=== PATIENT | male | born 1975 | race Caucasian/White ===

== ENCOUNTER 2025-02-22 10:43 | Inpatient (IN) | payer SELFPAY ==
[2025-02-22] VITALS (13 sets, daily range): BP systolic 117–178; BP diastolic 66–86; PULSE 56–100; RESP 16–18; TEMP 37.8–38.4; O2SAT 92–99; BMI 27.3
--- NOTE | 2025-02-22 11:24 | ED_ITS ---
Documented by User: DENISA Wheatley 02/22/25 17:20 HPI - Extremity Problem 2 General: Chief complaint: Extremity Problem,Nontraumatic Stated complaint: Dr bert Arora Leg Pain Time Seen by Provider: 02/22/25 11:02 Source: patient Mode of arrival: ambulatory Limitations: no limitations History of Present Illness: Patient is a 49-year-old male presents to ED today after he was recommended to come here by Dr. Doll regarding his right lower leg. Patient states a few days ago he began developing URI-like symptoms including cough, chest congestion, rhinorrhea/nasal congestion, as well as some diarrhea and low-grade fevers. He states his young child has been sick as well. He states he became concerned when he began developing redness and streaking to his right lower leg which is why he was seen at the clinic today. He is now not sure if his fevers are secondary to the likely viral URI or his leg. At the clinic, he was found to have cellulitis and lymphadenopathy involving his right leg and provider was concerned about sepsis thus prompting him to come to the emergency department. MD Complaint: extremity pain and extremity swelling Onset (ago): day(s) Pain Consistency: constant Location: right and lower extremity Radiation: none Relieving factors: nothing Exacerbating factors: weight bearing and walking Associated symptoms: Reports fever(s); Deny chest pain Related Data Home Medications ?Medication ?Instructions ?Recorded ?Confirmed [id number] 12.5 30 ml PO QID 02/22/25 02/22/25 mg-30 mg-1,000 mg/30 mL oral liquid ibuprofen 200 mg tablet (Advil) 800 mg PO Q6H PRN Feve r Or Pain 02/22/25 02/22/25 ibuprofen-diphenhydramine citrate 2 tab PO BEDTIME 11/1102/22/25 200 mg-38 mg tablet (Advil PM) Allergies Allergy/AdvReac Type Severity Reaction Status Date / Time No Known Allergies Allergy Verified 02/22/25 10:11 Review of Systems 2 Const: Reports: fever(s), chills and body aches Eyes: Denies: change in vision, blurry vision, photophobia, eye discomfort or eye discharge ENMT: Reports: nasal discharge and sinus pain; Denies: throat pain, odynophagia or ear or mastoid pain Card: Denies: chest pain, palpitations, irregular heart rhythm, edema, swelling of feet/ankles, lightheadedness, syncope, pre-syncope, dyspnea on exertion, orthopnea, leg pain with exertion or acrocyanosis Resp: Reports: non-productive cough and chest congestion; Denies: dyspnea GI: Denies: abdominal pain, nausea, vomiting or diarrhea : Denies: flank pain, dysuria or hematuria Musc: Reports: extremity pain and extremity swelling; Denies: neck pain, back pain, joint pain or joint swelling Skin/Breast: Reports: erythema Neuro: Denies: headache(s), numbness in extremities, weakness in extremities, sensory changes or dizziness PFSH ED 2 PFSH: Social History Smoking and tobacco/nicotine status: current every day tobacco/nicotine user Second hand smoke exposure: No Alcohol intake: former Substance/Drug Use: former Adopted: No Caregiver/support person: No Lives independently: No Household members: none Housing: House Marital status: Single Number of children: 5 Highest education level completed: High School Graduate service: No Physical Exam 2 Const: COMMON NORMALS: average body habitus, patient oriented x3, no limitations, healthy appearing, alert and well nourished GENERAL APPEARANCE: cooperative and ill appearing ORIENTATION/CONSCIOUSNESS: Yes awake, Yes oriented to person, Yes oriented to place and Yes oriented to time HENMT: COMMON NORMALS: normocephalic and atraumatic HEAD & SCALP: normal to inspection, normocephalic and atraumatic FACE & SINUS: normal facial exam Neck/C-Spine: COMMON NORMALS: no lymphadenopathy Resp: COMMON NORMALS: normal respiratory effort and clear to auscultation bilaterally AUSCULTATION: clear to auscultation bilaterally Cardio: COMMON NORMALS: regular rate and regular rhythm RATE: regular rate RHYTHM: regular rhythm GI: COMMON NORMALS: Normal to inspection, nondistended, normoactive bowel sounds present, Soft to palpation and non-tender PALPATION: Yes Soft to palpation : COMMON NORMALS: Yes no CVA tenderness BLADDER/KIDNEY EXAM: Yes no CVA tenderness Back/Pelvis: COMMON NORMALS: no CVA tenderness, thoracic and lumbar spine normal to inspection and no thoracic nor lumbar tenderness Extremity: COMMON NORMALS: full ROM, capillary refill normal and no calf tenderness GENERAL: Yes normal exam except as noted RIGHT LOWER EXTREMITY: Yes lower leg EXTREMITY IMAGE (FRONT): 1. large area of cellulitis that is outlined; warm to the touch; no obvious underlying fluid collection noted 2. lymphangitic streaking; inguinal lymp hadenopathy Neuro: COMMON NORMALS: patient oriented x3, moves all extremities, no focal motor deficits and no sensory deficits noted SENSORIUM/ORIENTATION: Yes alert, Yes oriented to person, Yes oriented to place and Yes oriented to time Skin: COMMON NORMALS: turgor normal NARRATIVE SKIN EXAM: see above GENERAL SKIN EXAM: turgor normal Course 2 Consultations: Consultation #1: Dr. Heaton-accepts hospitalization, recommending CT lower extremity Vital Signs: Vital signs: Vital Signs Temperature 100.2 F H 02/22/25 11:14 Pulse Rate 100 02/22/25 16:30 Respiratory Rate 18 02/22/25 11:14 Blood Pressure 149/82 02/22/25 16:30 Pulse Oximetry 97 02/22/25 16:30 Oxygen Delivery Me thod Room Air 02/22/25 11:14 MDM - Extremity (Nontraumatic) Medical Decision Making Patient is a nice 49-year-old male here mainly due to the concern of infection regarding his right lower extremity. He has had URI-like symptoms over the past several days and initially attributed to being around his sick child with similar symptoms. Patient's respiratory panel was unremarkable. CXR is normal. Patient has significant cellulitis involving his right lower extremity with lymphangitic spread proximally with a large amount of inguinal lymphadenopathy. Patient's vital signs are stable apart from low-grade temperature of 100.2. White count is 12.13 with a normal lactic. CRP mildly elevated at 35.3. He does not meet sepsis criteria. Blood cultures have been obtained and he was started on IV antibiotics. Patient will be admitted to Dr. Heaton-she did request CT imaging of his right lower extremity to rule out necrotizing fasciitis. I clinically do not have a concern for this. Medical Records I reviewed the patient's medical records. Lab Data I reviewed the patient's lab results. 02/22/25 11:25 02/22/25 11:25 Radiology Impressions Chest X-Ray 02/22/25 11:49 Impression: Hyperinflation and atherosclerosis. Lower Extremity CT 02/22/25 12:59 Impression: 1. Subcutaneous edema extending in the anterior aspect of the right leg from the knee to the ankle most consistent with severe cellulitis. 2. No evidence of abscess or tissue destruction. Femur CT 02/22/25 13:47 Impression: 1. Extensive subcutaneous fluid in the medial thigh extending the knee which probably represents cellulitis. 2. No evidence of abscess or muscle destruction is seen. 3. Fluid collection in right scrotum which may represent a simple cyst or more complex fluid collection.. Scrotum Ultrasound 02/22/25 15:38 IMPRESSION: Bilateral epididymal cysts measuring up to 1.9 cm on the right and 0.6 cm on the left. The right epididymal cyst is compatible with the cystic structure seen on CT from earlier the same day. Laboratory Results WBC 12.13 10^3/uL (3.29-11.43) H 02/22/25 11:25 RBC 5.25 10^6/uL (3.85-5.65) 02/22/25 11:25 Hgb 16.10 g/dL (11.27-16.99) 02/22/25 11:25 Hct 45.0 % (37-53) 02/22/25 11:25 MCV 85.7 fl (82-101) 02/22/25 11:25 MCH 30.7 pg (27-33) 02/22/25 11:25 MCHC 35.8 g/dL (30-55) 02/22/25 11:25 RDW 12.9 % (12.1-15.1) 02/22/25 11:25 Plt Count 166 10^3/cmm (157-399) 02/22/25 11:25 MPV 11.2 fL (7.4-10.4) H 02/22/25 11:25 Neut % (Auto) 78.0 % 02/22/25 11:25 Lymph % (Auto) 11.1 % 02/22/25 11:25 Daggett % (Auto) 10.1 % 02/22/25 11:25 Eos % (Auto) 0.1 % 02/22/25 11:25 Baso % (Auto) 0.2 % 02/22/25 11:25 Neut # (Auto) 9.46 10^3/uL (1.8-7.7) H 02/22/25 11:25 Lymph # (Auto) 1.4 10^3/uL (0.8-4.8) 02/22/25 11:25 Daggett # (Auto) 1.2 10^3/uL (0.2-0.9) H 02/22/25 11:25 Eos # (Auto) 0.0 10^3/uL (0.0-0.8) 02/22/25 11:25 Baso # (Auto) 0.0 10^3/uL (0.0-0.1) 02/22/25 11:25 Nucleated RBC % (auto) 0 % 02/22/25 11:25 Nucleated RBCs # 0.0 /100WBC 02/22/25 11:25 ESR 7 mm/hr (0-10) 02/22/25 11:25 Sodium 139 mmol/L (136-145) 02/22/25 11:25 Potassium 3.3 mmol/L (3.5-5.1) L 02/22/25 11:25 Chloride 99 mmol/L (98-107) 02/22/25 11:25 Carbon Dioxide 24 mmol/L (22-29) 02/22/25 11:25 Anion Gap 19.3 (5-19) H 02/22/25 11:25 BUN 12 mg/dL (6-20) 02/22/25 11:25 Creatinine 1.0 mg/dL (0.7-1.2) 02/22/25 11:25 GFR Calculation 79.4 mL/min (90-130) L 02/22/25 11:25 Glucose 108 mg/dL (65-115) 02/22/25 11:25 Estimat Average Glucose 105 02/22/25 11:25 Hemoglobin A1c 5.3 % (4.0-6.0) 02/22/25 11:25 Calculated Osmolality 288 mOsm/kg (285-295) 02/22/25 11:25 Lactic Acid 1.5 mmol/L (0.5-2.2) 02/22/25 11:25 Calcium 9.0 mg/dL (8.5-10.5) 02/22/25 11:25 Total Bilirubin 1.0 mg/dL (0.15-1.2) 02/22/25 11:25 AST 28 U/L (0-40) 02/22/25 11:25 ALT 53 U/L (0-41) H 02/22/25 11:25 Alkaline Phosphatase 66 U/L (40-130) 02/22/25 11:25 Creatine Kinase 76 U/L (39-308) 02/22/25 11:25 C-Reactive Protein 35.3 mg/L (0.0-4.9) H 02/22/25 11:25 Total Protein 8.8 g/dL (6.6-8.7) H 02/22/25 11:25 Albumin 4.4 g/dL (3.5-5.2) 02/22/25 11:25 Globulin 4.4 g/dL (1.3-4.6) 02/22/25 11:25 Triglycerides 75 mg/dL (0-150) 02/22/25 11:25 Cholesterol 130 mg/dL (0-200) 02/22/25 11:25 LDL Cholesterol, Calc 81 mg/dL (50-129) 02/22/25 11: HDL Cholesterol 34 mg/dL (60-100) L 02/22/25 11:25 LDL/HDL Ratio 2.38 RATIO (0.00-3.22) 02/22/25 11: Cholesterol/HDL Ratio 3.82 mg/dL (1.0-5.00) 02/22/25 11:25 Procalcitonin 0.07 ng/mL (0-0.5) 02/22/25 11:25 Urine Color Dark yellow (Yellow) A 02/22/25 13:22 Urine Appearance Cloudy (CLEAR) A 02/22/25 13:22 Urine pH 6.0 (5-7) 02/22/25 13:22 Ur Specific Bone Gap 1.031 (1.005-1.030) H 02/22/25 13:22 Urine Protein 3+ (Negative) A 02/22/25 13:22 Urine Glucose (UA) Negative (Normal) 02/22/25 13:22 Urine Ketones 2+ (Negative) H 02/22/25 13:22 Urine Blood 2+ (Negative) A 02/22/25 13:22 Urine Nitrate Negative (Negative) 02/22/25 13:22 Urine Bilirubin 1+ (Negative) H 02/22/25 13:22 Urine Urobilinogen 2.0 mg/dL (Negative) H 02/22/25 13:22 Ur Leukocyte Esterase Trace (Negative) A 02/22/25 13:22 Urine RBC 51-100 /hpf (0-2) H 02/22/25 13:22 Urine WBC 0-5 /hpf (0-5) 02/22/25 13:22 Ur Squamous Epith Cells 6-10 /hpf (0-5) 02/22/25 13:22 Amorphous Sediment Not Reportable 02/22/25 13:22 Urine Bacteria None seen /hpf (NONE) 02/22/25 13:22 Hyaline Casts 8.67 /lpf 02/22/25 13:22 Ur Random Microalbumin 49 ug/dL (0-20) H 02/22/25 13:22 U Random Total Protein 156 mg/dL 02/22/25 13:22 Urine Creatinine 389 mg/dL (39-259) H 02/22/25 13:22 Urine Creatinine 390 mg/dL (39-259) H 02/22/25 13:22 Microalb/Creat Ratio 126 mg/dL (0-20) H 02/22/25 13:22 Complement C3 171 mg/dL (90-180) 02/22/25 11:25 Complement C4 34 mg/dL (10-40) 02/22/25 11:25 Adenovirus (PCR) Not detected (NOT DETECT) 02/22/25 13:22 C. pneumoniae DNA (PCR) Not detected (NOT DETECT) 02/22/25 13:22 Coronavirus 229E (PCR) Not detected (NOT DETECT) 02/22/25 13:22 Human Metapneumovir PCR Not detected (NOT DETECT) 02/22/25 13:22 Influenza A (H1) PCR Not detected (NOT DETECT) 02/22/25 13:22 Influ A (H1/09) PCR Not detected (NOT DETECT) 02/22/25 13:22 Influenza A (H3) PCR Not detected (NOT DETECT) 02/22/25 13:22 Influenza Type A (PCR) Not detected (NOT DETECT) 02/22/25 13:22 Influenza Type B (PCR) Not detected (NOT DETECT) 02/22/25 13:22 M. pneumoniae (PCR) Not detected (NOT DETECT) 02/22/25 13:22 Parainfluenza 1 (PCR) Not detected (NOT DETECT) 02/22/25 13:22 Parainfluenza 2 (PCR) Not detected (NOT DETECT) 02/22/25 13:22 Parainfluenza 3 (PCR) Not detected (NOT DETECT) 02/22/25 13:22 Parainfluenza 4 (PCR) Not detected (NOT DETECT) 02/22/25 13:22 RSV Type A (PCR) Not detected (NOT DETECT) 02/22/25 13:22 RSV Type B (PCR) Not detected (NOT DETECT) 02/22/25 13:22 Entero/Rhino (PCR) Not detected (NOT DETECT) 02/22/25 13:22 SARS-CoV-2 (PCR) Not detected (NOT DETECT) 02/22/25 13:22 All radiology interpretation(s) finalized by discharge Discharge Plan Discharge Patient Disposition: Admitted As Inpatient Admit Provider: Kae Heaton Clinical Impression: Acute lymphangitis of right lower extremity, Cellulitis of right lower extremity Condition: Stable Coding Level of Care Code ED Charging Machine Operator for Chg Fwd Documented by User: Clairce Osorio MD 02/22/25 14:32 HPI - Extremity Problem 2 General: Chief complaint: Extremity Problem,Nontraumatic Stated complaint: Dr bert Arora Leg Pain Time Seen by Provider: 02/22/25 11:02 Related Data Home Medications ?Medication ?Instructions ?Recorded ?Confirmed [id number] 12.5 30 ml PO QID 02/22/25 02/22/25 mg-30 mg-1,000 mg/30 mL oral liquid ibuprofen 200 mg tablet (Advil) 800 mg PO Q6H PRN Feve r Or Pain 02/22/25 02/22/25 ibuprofen-diphenhydramine citrate 2 tab PO BEDTIME 11/1102/22/25 200 mg-38 mg tablet (Advil PM) Allergies Allergy/AdvReac Type Severity Reaction Status Date / Time No Known Allergies Allergy Verified 02/22/25 10:11 PFSH ED 2 PFSH: Social History Smoking and tobacco/nicotine status: current every day tobacco/nicotine user Second hand smoke exposure: No Alcohol intake: former Substance/Drug Use: former Adopted: No Caregiver/support person: No Lives independently: No Household members: none Housing: House Marital status: Single Number of children: 5 Highest education level completed: High School Graduate service: No Physical Exam 2 Extremity: EXTREMITY IMAGE (FRONT): 1. large area of cellulitis that is outlined; warm to the touch; no obvious underlying fluid collection noted 2. lymphangitic streaking; inguinal lymp hadenopathy Course 2 Vital Signs: Vital signs: Vital Signs Temperature 100.2 F H 02/22/25 11:14 Pulse Rate 100 02/22/25 16:30 Respiratory Rate 18 02/22/25 11:14 Blood Pressure 149/82 02/22/25 16:30 Pulse Oximetry 97 02/22/25 16:30 Oxygen Delivery Me thod Room Air 02/22/25 11:14 MDM - Extremity (Nontraumatic) Lab Data 02/22/25 11:25 02/22/25 11:25 Radiology Impressions Chest X-Ray 02/22/25 11:49 Impression: Hyperinflation and atherosclerosis. Lower Extremity CT 02/22/25 12:59 Impression: 1. Subcutaneous edema extending in the anterior aspect of the right leg from the knee to the ankle most consistent with severe cellulitis. 2. No evidence of abscess or tissue destruction. Femur CT 02/22/25 13:47 Impression: 1. Extensive subcutaneous fluid in the medial thigh extending the knee which probably represents cellulitis. 2. No evidence of abscess or muscle destruction is seen. 3. Fluid collection in right scrotum which may represent a simple cyst or more complex fluid collection.. Scrotum Ultrasound 02/22/25 15:38 IMPRESSION: Bilateral epididymal cysts measuring up to 1.9 cm on the right and 0.6 cm on the left. The right epididymal cyst is compatible with the cystic structure seen on CT from earlier the same day. Laboratory Results WBC 12.13 10^3/uL (3.29-11.43) H 02/22/25 11:25 RBC 5.25 10^6/uL (3.85-5.65) 02/22/25 11:25 Hgb 16.10 g/dL (11.27-16.99) 02/22/25 11:25 Hct 45.0 % (37-53) 02/22/25 11:25 MCV 85.7 fl (82-101) 02/22/25 11:25 MCH 30.7 pg (27-33) 02/22/25 11:25 MCHC 35.8 g/dL (30-55) 02/22/25 11:25 RDW 12.9 % (12.1-15.1) 02/22/25 11:25 Plt Count 166 10^3/cmm (157-399) 02/22/25 11:25 MPV 11.2 fL (7.4-10.4) H 02/22/25 11:25 Neut % (Auto) 78.0 % 02/22/25 11:25 Lymph % (Auto) 11.1 % 02/22/25 11:25 Daggett % (Auto) 10.1 % 02/22/25 11:25 Eos % (Auto) 0.1 % 02/22/25 11:25 Baso % (Auto) 0.2 % 02/22/25 11:25 Neut # (Auto) 9.46 10^3/uL (1.8-7.7) H 02/22/25 11:25 Lymph # (Auto) 1.4 10^3/uL (0.8-4.8) 02/22/25 11:25 Daggett # (Auto) 1.2 10^3/uL (0.2-0.9) H 02/22/25 11:25 Eos # (Auto) 0.0 10^3/uL (0.0-0.8) 02/22/25 11:25 Baso # (Auto) 0.0 10^3/uL (0.0-0.1) 02/22/25 11:25 Nucleated RBC % (auto) 0 % 02/22/25 11:25 Nucleated RBCs # 0.0 /100WBC 02/22/25 11:25 ESR 7 mm/hr (0-10) 02/22/25 11:25 Sodium 139 mmol/L (136-145) 02/22/25 11:25 Potassium 3.3 mmol/L (3.5-5.1) L 02/22/25 11:25 Chloride 99 mmol/L (98-107) 02/22/25 11:25 Carbon Dioxide 24 mmol/L (22-29) 02/22/25 11:25 Anion Gap 19.3 (5-19) H 02/22/25 11:25 BUN 12 mg/dL (6-20) 02/22/25 11:25 Creatinine 1.0 mg/dL (0.7-1.2) 02/22/25 11:25 GFR Calculation 79.4 mL/min (90-130) L 02/22/25 11:25 Glucose 108 mg/dL (65-115) 02/22/25 11:25 Estimat Average Glucose 105 02/22/25 11:25 Hemoglobin A1c 5.3 % (4.0-6.0) 02/22/25 11:25 Calculated Osmolality 288 mOsm/kg (285-295) 02/22/25 11:25 Lactic Acid 1.5 mmol/L (0.5-2.2) 02/22/25 11:25 Calcium 9.0 mg/dL (8.5-10.5) 02/22/25 11:25 Total Bilirubin 1.0 mg/dL (0.15-1.2) 02/22/25 11:25 AST 28 U/L (0-40) 02/22/25 11:25 ALT 53 U/L (0-41) H 02/22/25 11:25 Alkaline Phosphatase 66 U/L (40-130) 02/22/25 11:25 Creatine Kinase 76 U/L (39-308) 02/22/25 11:25 C-Reactive Protein 35.3 mg/L (0.0-4.9) H 02/22/25 11:25 Total Protein 8.8 g/dL (6.6-8.7) H 02/22/25 11:25 Albumin 4.4 g/dL (3.5-5.2) 02/22/25 11:25 Globulin 4.4 g/dL (1.3-4.6) 02/22/25 11:25 Triglycerides 75 mg/dL (0-150) 02/22/25 11:25 Cholesterol 130 mg/dL (0-200) 02/22/25 11:25 LDL Cholesterol, Calc 81 mg/dL (50-129) 02/22/25 11:25 HDL Cholesterol 34 mg/dL (60-100) L 02/22/25 11:25 LDL/HDL Ratio 2.38 RATIO (0.00-3.22) 02/22/25 11: Cholesterol/HDL Ratio 3.82 mg/dL (1.0-5.00) 02/22/25 11:25 Procalcitonin 0.07 ng/mL (0-0.5) 02/22/25 11:25 Urine Color Dark yellow (Yellow) A 02/22/25 13:22 Urine Appearance Cloudy (CLEAR) A 02/22/25 13:22 Urine pH 6.0 (5-7) 02/22/25 13:22 Ur Specific Bone Gap 1.031 (1.005-1.030) H 02/22/25 13:22 Urine Protein 3+ (Negative) A 02/22/25 13:22 Urine Glucose (UA) Negative (Normal) 02/22/25 13:22 Urine Ketones 2+ (Negative) H 02/22/25 13:22 Urine Blood 2+ (Negative) A 02/22/25 13:22 Urine Nitrate Negative (Negative) 02/22/25 13:22 Urine Bilirubin 1+ (Negative) H 02/22/25 13:22 Urine Urobilinogen 2.0 mg/dL (Negative) H 02/22/25 13:22 Ur Leukocyte Esterase Trace (Negative) A 02/22/25 13:22 Urine RBC 51-100 /hpf (0-2) H 02/22/25 13:22 Urine WBC 0-5 /hpf (0-5) 02/22/25 13:22 Ur Squamous Epith Cells 6-10 /hpf (0-5) 02/22/25 13:22 Amorphous Sediment Not Reportable 02/22/25 13:22 Urine Bacteria None seen /hpf (NONE) 02/22/25 13:22 Hyaline Casts 8.67 /lpf 02/22/25 13:22 Ur Random Microalbumin 49 ug/dL (0-20) H 02/22/25 13:22 U Random Total Protein 156 mg/dL 02/22/25 13:22 Urine Creatinine 389 mg/dL (39-259) H 02/22/25 13:22 Urine Creatinine 390 mg/dL (39-259) H 02/22/25 13:22 Microalb/Creat Ratio 126 mg/dL (0-20) H 02/22/25 13:22 Complement C3 171 mg/dL (90-180) 02/22/25 11:25 Complement C4 34 mg/dL (10-40) 02/22/25 11:25 Adenovirus (PCR) Not detected (NOT DETECT) 02/22/25 13:22 C. pneumoniae DNA (PCR) Not detected (NOT DETECT) 02/22/25 13:22 Coronavirus 229E (PCR) Not detected (NOT DETECT) 02/22/25 13:22 Human Metapneumovir PCR Not detected (NOT DETECT) 02/22/25 13:22 Influenza A (H1) PCR Not detected (NOT DETECT) 02/22/25 13:22 Influ A (H1/09) PCR Not detected (NOT DETECT) 02/22/25 13:22 Influenza A (H3) PCR Not detected (NOT DETECT) 02/22/25 13:22 Influenza Type A (PCR) Not detected (NOT DETECT) 02/22/25 13:22 Influenza Type B (PCR) Not detected (NOT DETECT) 02/22/25 13:22 M. pneumoniae (PCR) Not detected (NOT DETECT) 02/22/25 13:22 Parainfluenza 1 (PCR) Not detected (NOT DETECT) 02/22/25 13:22 Parainfluenza 2 (PCR) Not detected (NOT DETECT) 02/22/25 13:22 Parainfluenza 3 (PCR) Not detected (NOT DETECT) 02/22/25 13:22 Parainfluenza 4 (PCR) Not detected (NOT DETECT) 02/22/25 13:22 RSV Type A (PCR) Not detected (NOT DETECT) 02/22/25 13:22 RSV Type B (PCR) Not detected (NOT DETECT) 02/22/25 13:22 Entero/Rhino (PCR) Not detected (NOT DETECT) 02/22/25 13:22 SARS-CoV-2 (PCR) Not detected (NOT DETECT) 02/22/25 13:22 Discharge Plan Discharge Patient Disposition: Admitted As Inpatient Admit Provider: Kae Heaton Clinical Impression: Acute lymphangitis of right lower extremity, Cellulitis of right lower extremity Condition: Stable Coding Level of Care Code ED Charging Machine Operator for Jorge Luis Allen
[2025-02-22 11:34] LABS: Hematocrit 45.0 % (37-53); Hemoglobin 16.10 g/dL (11.27-16.99); Mean Corpuscular HGB Conc 35.8 g/dL (30-55); Mean Corpuscular Hemoglobin 30.7 pg (27-33); Mean Corpuscular Volume 85.7 fl (82-101); Nucleated Red Blood Cells % 0 %; Platelet Count 166 10^3/cmm (157-399); Red Blood Count 5.25 10^6/uL (3.85-5.65); White Blood Count 12.13 10^3/uL (3.29-11.43)
--- NOTE | 2025-02-22 11:49 | XR_ITS ---
WS: [id number] Portable AP upright chest, 02/22/2025 Clinical Data: cough/fevers Comparison: None. Findings: No nodules, masses or effusions are seen. The heart is normal. The pulmonary vascularity is not increased. No pneumonia or pneumothorax is seen. The diaphragms are flattened. The aortic arch shows mild calcification. XR/XR chest 1V portable [id number] Impression: Hyperinflation and atherosclerosis.
[2025-02-22 11:55] LABS: Lactic Sepsis W/Reflex 1.5 mmol/L (0.5-2.2)
[2025-02-22 11:56] LABS: Alanine Aminotransferase 53 U/L (0-41); Albumin Level 4.4 g/dL (3.5-5.2); Alkaline Phosphatase 66 U/L (40-130); Anion Gap 19.3 (5-19); Aspartate Amino Transferase 28 U/L (0-40); Blood Urea Nitrogen 12 mg/dL (6-20); Calcium 9.0 mg/dL (8.5-10.5); Carbon Dioxide 24 mmol/L (22-29); Chloride 99 mmol/L (98-107); Globulin 4.4 g/dL (1.3-4.6); Glucose 108 mg/dL (65-115); Osmolality Calculated 288 mOsm/kg (285-295); Potassium 3.3 mmol/L (3.5-5.1); Sodium 139 mmol/L (136-145); Total Protein 8.8 g/dL (6.6-8.7)
--- NOTE | 2025-02-22 12:01 | USCV_ITS ---
Jani Gonzales Age: 49 Gender: M : 1975 Exam Date: 02/22/2025 12:19 Ordering Phys: Eun Thurman Technologist: Exam Location: [facility] [place]_ Indication: rt leg pain and swelling PROCEDURES: Venous duplex imaging was performed in only the right lower extremity. The following venous structures were evaluated: common femoral vein, profunda vein, proximal portion of the greater saphenous vein, superficial femoral vein, and the popliteal vein. In addition, the posterior tibial and peroneal trunk were evaluated. FINDINGS: Normal 2-D Doppler and augmentation and compressibility throughout the lower extremity venous structures. Additional imaging through the proximal calf veins also reveals no thrombus. Limited evaluation of the greater saphenous vein is patent with no thrombus. Large Bakers cyst in right popliteal fossa. CONCLUSIONS No DVT right lower extremity. Right popliteal fossa Goel's cyst. Dr. Radha Ferrer DO (Electronically Signed) Final Date: 22 February 2025 12:34 S
--- NOTE | 2025-02-22 12:59 | CT_ITS ---
WS: [email or web address] CT scan of the right leg, 02/22/2025 Clinical Data: infection; r/o abscess/necrotizing fasciitis DLP: 520.08 mGy centimeters Comparison: None. Findings: There is subcutaneous edema extending from the knee to the ankle. The edema is mostly in the anterior leg. No fluid-fluid levels or air-fluid levels are seen. There is no evidence of an abscess. There is no bone destruction. The muscles appear to be normal with no disruption. There is a fluid collection posterior to the knee which probably represents a Goel's cyst. CT/CT lower leg RT w con [id number] Impression: 1. Subcutaneous edema extending in the anterior aspect of the right leg from th e knee to the ankle most consistent with severe cellulitis. 2. No evidence of abscess or tissue destruction.
--- NOTE | 2025-02-22 13:47 | CT_ITS ---
WS: [id number] CT scan of the right thigh and femur, 02/22/2025 Clinical Data: infection; r/o abscess/nec fasc Comparison: None. Findings: There is extensive subcutaneous fluid on the medial thigh extending from the right inguinal region to the knee. There are no air-fluid or fluid fluid levels. No evidence of abscess is seen. The muscle appears to be intact. There is no bone destruction or erosion. The arterial and venous system appears to be normal. There is a lymph node in the right inguinal region which shows perinodal edema. The right scrotum shows a fluid collection which could represent a simple or more complex cyst fluid collection.. No fluid-fluid level is seen within this fluid collection. There is a 3.5 cm fluid collection posterior to the knee which probably represents a Goel's cyst. CT/CT femur RT w con [id number] Impression: 1. Extensive subcutaneous fluid in the medial thigh extending the knee which pr obably represents cellulitis. 2. No evidence of abscess or muscle destruction is seen. 3. Fluid collection in right scrotum which may represent a simple cyst or more complex fluid collection..
[2025-02-22 14:35] LABS: Glucose Urine UA Negative (Normal); Nitrate Urine Negative (Negative)
[2025-02-22 14:40] LABS: Add Urine Microscopic? YES
[2025-02-22 14:47] LABS: Specific Gravity, Urine 1.031 (1.005-1.030)
[2025-02-22 14:48] LABS: UA Slide Review UA Slide Review Perf
--- NOTE | 2025-02-22 14:57 | P.HP_ITS ---
Providers/Chief Complaint 2 Primary Care Provider: ABRAN Sanchez Chief Complaint: Dr bert Arora Leg Pain Fever History of Present Illness Jani Gonzales is a 49 year old male With no significant past medical history other than psychiatric care as listed per patient's primary care notes presented to the hospital today for complaint of right leg cellulitis. He has been developing upper respiratory like symptoms including cough congestion rhinorrhea nasal congestion with some diarrhea and low-grade fevers. He states his kids at home have been sick. He started developing redness and streaking to his right lower leg. He went to his primary care doctor today where the leg was marked with skin marker and he was sent to the ER for further evaluation. He does have lymphadenopathy involving his right leg. He does have red splotches on right groin area as well. This feels slightly nauseous however denies vomiting at this time and active diarrhea. States he has a fever however has not checked his temperature at home. In the ER today was 100.2. He states the redness started off on his right de la cruz and now he started spreading to his knee and tracking up all the way to the groin. It appears to be in lymphatic distribution. Medications/Allergies Allergies Allergy/AdvReac Type Severity Reaction Status Date / Time No Known Allergies Allergy Verified 02/22/25 10:11 PFSH Acute 2 PFSH: Social History Smoking and tobacco/nicotine status: current every day tobacco/nicotine user Second hand smoke exposure: No Alcohol intake: former Substance/Drug Use: former Adopted: No Caregiver/support person: No Lives independently: No Household members: none Housing: House Marital status: Single Number of children: 5 Highest education level completed: High School Graduate service: No Vitals/I&O/Wt Last Vital Signs Temp 100.2 F H 02/22/25 11:14 Pulse 86 02/22/25 11:14 Resp 18 02/22/25 11:14 BP 153/86 02/22/25 11:14 Pulse Ox 99 02/22/25 11:14 O2 Del Method Room Air 02/22/25 11:14 Physical Exam 2 Narrative: General: Alert oriented x3, patient seen sitting up in bed. Patient has facial flushing present. He states he is feeling really hot. HEENT: Normocephalic, atraumatic, EOMI, breathing room air Cardio: Tachycardic, normal S1-S2, Respiratory: Clear to auscultation bilaterally no wheezes no rhonchi GI: Abdomen soft, nontender, bowel sounds + Extremities: Pulses 2+, redness extending from right de la cruz all the way up to thigh and groin area. Area is tender and warm to touch. Has been marked with skin marker. Patient states that this has been spreading within the last day. Data 02/22/25 11:25 02/22/25 11:25 Micro: Microbiology 02/22/25 11:27 Blood Culture - Preliminary Blood SPECIMEN COLLECTED 02/22/25 11: Blood Culture - Preliminary Blood SPECIMEN COLLECTED A&P Assessment and plan 1. Acute lymphangitis of right lower extremity: 2. Cellulitis of right lower extremity: 3. Hypokalemia: 4. Fever: 5. Dehydration: Plan: #Right leg cellulitis #SIRS criteria met secondary to cellulitis?criteria met by fever, tachycardia, #Hypokalemia #Dehydration #Fever secondary to above - Isiah the redness area with marker. ? Will place on vancomycin Zosyn and clindamycin for toxin suppression ? Appears to be possible lymphangitis. ? Check CT leg to rule out deeper infection. ? Patient denies any blunt trauma skin abrasions. No crepitus present in the skin. Will closely watch for possibility of necrotizing fasciitis?. ? Consult orthopedic surgery for evaluation. -Elevated CRP 35 ? Check sed rate, creatinine kinase ? Check respiratory panel 2. - Check blood cultures ? Patient appears to be dehydrated. Normal saline bolus 1 L to be given ? Placed on normal saline 125 cc/h ? Zofran for nausea ? Tylenol 650 every 6 hours as needed for pain ? Venous Dopplers negative for DVT. Full code DVT prophylaxis: Heparin SQ twice daily PDMP PDMP Reviewed: Not Reviewed Attestations 2 Medical Necessity Statement*: > 2 midnight stay for management Diagnoses Acute lymphangitis of right lower extremity L03.125 Cellulitis of right lower extremity L03.115 Hypokalemia E87.6 Fever R50.9 Dehydration E86.0
[2025-02-22] MEDS: iohexol 350 mg/mL 500 mL Btl (per mL) IV ×2 (15:02)
--- NOTE | 2025-02-22 15:38 | P.CONIM_ITS ---
Providers/Reason For Consult 2 Consulting Physician/Specialty*: Collin Morales MD/telenephrology Reason for Consult*: Abnormal urinalysis. Requesting Physician: Dr. Kae BRANDON Attending Physician: Dr Kae Brandon Primary Care Provider: ABRAN Sanchez History of Present Illness History of Present Illness Jani Gonzales is a 49 year old male here with right lower extremity cellulitis. Patient states he has been having leg pain for the last couple days. He also has URI symptoms. He has had fevers went to his PMD who sent him to emergency room. Where the patient was admitted to the hospital urinalysis has 2+ ketones 3+ proteins 2+ blood 1+ bili Rodrigue, 51-100 red cells 0-5 white cells and hyaline cast. Review of Systems 2 Narrative: Weak nausea, URI symptoms, diarrhea, leg pains, chronic ibuprofen use, headaches, leg pains, shortness of breath no visual changes no chest pain no abdominal pain poor appetite 1 episode of diarrhea Medications/Allergies Home Medications ?Medication ?Instructions ?Recorded ?Confirmed ?Last Taken ?Type ssxjkjypwh-PA-pvqmyteamcrty 12.5 30 ml PO QID 02/22/25 02/22/25 02/21/25 22:00 History mg-30 mg-1,000 mg/30 mL oral liquid ibuprofen 200 mg tablet (Advil) 800 mg PO Q6H PRN Feve r Or Pain 02/22/25 02/22/25 02/21/25 History ibuprofen-diphenhydramine citrate 2 tab PO BEDTIME 11/1102/22/25 02/21/25 20:00 History 200 mg-38 mg tablet (Advil PM) Allergies Allergy/AdvReac Type Severity Reaction Status Date / Time No Known Allergies Allergy Verified 02/22/25 10:11 PFSH Acute 2 PFSH: Social History Smoking and tobacco/nicotine status: current every day tobacco/nicotine user Second hand smoke exposure: No Alcohol intake: former Substance/Drug Use: former Adopted: No Caregiver/support person: No Lives independently: No Household members: none Housing: House Marital status: Single Number of children: 5 Highest education level completed: High School Graduate service: No Vitals/I&O/Wt Last Vital Signs Temp 100.2 F H 02/22/25 11:14 Pulse 86 02/22/25 11:14 Resp 18 02/22/25 11:14 BP 153/86 02/22/25 11:14 Pulse Ox 99 02/22/25 11:14 O2 Del Method Room Air 02/22/25 11:14 Physical Exam 2 Narrative: Patient lying in bed vital signs noted. No apparent respiratory distress low- grade fevers. HEENT normocephalic atraumatic. Neck is supple Lungs clear to auscultation. Heart regular no rubs or gallops. Abdomen is soft positive bowel sounds. Extremities right lower extremity erythematous changes streaking up his leg. Significant tenderness. Trace edema bilaterally. Neuro awake alert oriented x 3 Data 02/22/25 11:25 02/22/25 11:25 Micro: Microbiology 02/22/25 11:27 Blood Culture - Preliminary Blood SPECIMEN COLLECTED 02/22/25 11:25 Blood Culture - Preliminary Blood SPECIMEN COLLECTED A&P Assessment and plan 1. Proteinuria: 49-year-old man with cellulitis chronic ibuprofen use. 1. Mild increased anion gap: Normal lactate. Glucose 108 this is not DKA. Monitor for starvation. 2. Urinalysis cloudy specific gravity 1031 urine protein 3+ urine ketones 2+ urine blood 2+ RBCs 51-100, white cells 0-5, squamous epithelial cells 6-10 hyaline casts present. I am concerned if patient has an infection related GN. Will send complements. Will send random urine protein and creatinine and urine albumin creatinine. Will send complements. Will send hepatitis serologies will send SAMANTHA [id number] DNA. We did advise patient to stop using NSAIDs which may be difficult for him. Will check a renal ultrasound. Given history of smoking and hematuria would also recommend urology evaluation which can be done as an outpatient. 3. Hypokalemia, will check magnesium and phosphorus look for starvation. Patient seen and examined with the aid of a nurse using A/V equipment. Patient consented to telehealth. Plan: Antibiotics as per primary. Send basic serologies for hematuria and proteinuria and ketones in urine. Evaluate for starvation. PDMP PDMP Reviewed: Not Reviewed Consult Attestations 2 Medical Necessity Statement: Leg cellulitis, abnormal urinalysis. Stop NSAIDs. Time Spent in Patient Care: Greater than 35 minutes (>than 50% of time spent in counselling and/or direct pt care on unit) . Coding Level of Care Code Acute Code for Chg Fwd Diagnoses Proteinuria R80.9
--- NOTE | 2025-02-22 15:38 | USR_ITS ---
PROCEDURE INFORMATION: Exam: US Scrotum Exam date and time: 02/22/2025 4:40 PM Age: 49 years old Clinical indication: Scrotum pain; Additional info: Right scrotum cystic collection TECHNIQUE: Imaging protocol: Real-time ultrasound of the scrotum and contents with color Doppler and image documentation. COMPARISON: CT femur RT w con [id number] 02/22/2025 2:49 PM FINDINGS: Right testicle: Normal. No mass. Normal color Doppler and arterial waveforms. No torsion. Right testicle measures 3.1 x 2.7 x 5.8 cm (25.6 mL). Left testicle: Normal. No mass. Normal color Doppler and arterial waveforms. No torsion. Left testicle measures 2.7 x 2.9 x 5.1 cm (20.8 mL). Epididymides: Right epididymal cysts measuring 1.8 x 1.9 x 1.9 cm. Left epididymal cysts measuring up to 0.6 cm. Scrotum/soft tissues: Normal. No hydroceles. US/US scrotum [id number] IMPRESSION: Bilateral epididymal cysts measuring up to 1.9 cm on the right and 0.6 cm on the left. The right epididymal cyst is compatible with the cystic structure seen on CT from earlier the same day.
[2025-02-22 15:39] LABS: Coronavirus 229E,HKU1,NL63,OC4 Not Detected (NOT DETECT); Parainfluenza Virus Type 1 Not Detected (NOT DETECT); Parainfluenza Virus Type 2 Not Detected (NOT DETECT); Parainfluenza Virus Type 3 Not Detected (NOT DETECT); Parainfluenza Virus Type 4 Not Detected (NOT DETECT); SARS-COV-2 Not Detected (NOT DETECT)
[2025-02-22 15:39] LABS: Estmated Average Glucose 105; Hemoglobin A1C 5.3 % (4.0-6.0)
[2025-02-22 15:40] LABS: Procalcitonin 0.07 ng/mL (0-0.5)
[2025-02-22] MEDS: piperacillin-tazobactam 3.375 GM in sodium chloride 0.9% (plus) 50 ML IV (15:48)
[2025-02-22] MEDS: heparin 5,000 unit/mL INJ 1 mL 5000 UNIT SUBCUT (15:52)
[2025-02-22 16:00] LABS: Cholesterol 130 mg/dL (0-200); HDL Cholesterol 34 mg/dL (60-100); Triglycerides 75 mg/dL (0-150)
[2025-02-22 16:40] LABS: Creatinine Urine, Random 390 mg/dL (39-259)
[2025-02-22 16:49] LABS: Microalbum Creatinine Ratio Ur 126 mg/dL (0-20)
--- NOTE | 2025-02-22 17:01 | PM.CONSULT ---
Providers/Reason For Consult Consulting Physician/Specialty*: Femi Rashid DO/orthopedic surgery Reason for Consult*: Consultation for right lower extremity cellulitis rule out necrotizing fasciitis Requesting Physician: Dr. Heaton Attending Physician: Kae Heaton MD Primary Care Provider: Harjit Meneses, S[employer]IOR [employer] PRO[employer] MA[employer]GER-[employer] History of Present Illness History of Present Illness Jani Gonzales is a 49 year old male presents to the emergency department complaining of right lower leg redness. Patient's had upper respiratory symptoms as well as low-grade fevers states he is had kids have been sick at home. Patient states on my history with the patient initially started off he states on Tuesday with pain up in the groin where he noted some red streaking down his thigh, he states he then noticed some redness on his lower leg and he has had some streaking through the right lower leg and at this point in time given his symptoms presented to the emergency department at this point in time emergency department has worked up patient patient's WBC count is 12 CRP 35 ESR 7. Internal medicine has seen evaluated patient due to patient's right lower extremity streaking cellulitis orthopedics was consulted for evaluation to rule out necrotizing fasciitis. Patient states he has had's low-grade fevers states he has felt nauseous but denies any vomiting. Patient's already received fluid and antibiotics he states he already feels better and feels some of his redness on his leg appears to be improving Review of Systems General: Reports: 10 or more systems reviewed and unremarkable except in HPI and below Medications/Allergies Home Medications ?Medication ?Instructions ?Recorded ?Confirmed ?Last Taken ?Type wbiayolkex-HC-bgqtprgtshasr 12.5 30 ml PO QID 02/22/25 02/22/25 02/21/25 22:00 History mg-30 mg-1,000 mg/30 mL oral liquid ibuprofen 200 mg tablet (Advil) 800 mg PO Q6H PRN Fever Or Pain 02/22/25 02/22/25 02/21/25 History ibuprofen-diphenhydramine citrate 2 tab PO BEDTIME 02/22/25 02/22/25 02/21/25 20:00 History 200 mg-38 mg tablet (Advil PM) Allergies Allergy/AdvReac Type Severity Reaction Status Date / Time No Known Allergies Allergy Verified 02/22/25 10:11 Current Medications Generic Name Dose Route Start Last Admin Trade Name Freq PRN Reason Stop Dose Admin Heparin Sodium (Porcine) 5,000 unit 02/22/25 15:00 02/22/25 15:52 Heparin 5,000 Unit/Ml Inj 1 Ml SUBCUT 5,000 unit Q12H CHRIS Administration Sodium Chloride 1,000 mls @ 125 mls/hr 02/22/25 15:00 02/22/25 15:44 Sodium Chloride 0.9% IV 125 mls/hr .Q8H CHRIS Administration PFSH Acute PFSH: Social History Smoking and tobacco/nicotine status: current every day tobacco/nicotine user Second hand smoke exposure: No Alcohol intake: former Substance/Drug Use: former Adopted: No Caregiver/support person: No Lives independently: No Household members: none Housing: House Marital status: Single Number of children: 5 Highest education level completed: High School Graduate service: No Vitals/I&O/Wt Last Vital Signs Temp 100.2 F H 02/22/25 11:14 Pulse 89 02/22/25 11:48 Resp 18 02/22/25 11:14 BP 153/86 02/22/25 11:14 Pulse Ox 98 02/22/25 11:48 O2 Del Method Room Air 02/22/25 11:14 Physical Exam Narrative: Orthopedic examination right lower extremity: Examination of the right lower extremity there is no open wounds or sores throughout the right lower extremity. Patient on examination he does have enlarged inguinal lymph nodes with mild tenderness to palpation in this area. There have been concern on imaging of some swelling in his scrotum this was inspected I do not see any acute signs of infection spreading from this area there is no erythema or redness, patient does have multiple areas of red streaking down the thigh and a lymphatic distribution as well as being very patchy/streaky another area of lymphangitis appreciated at the pretibial region. Patient has no appreciable swelling at the knee is able to actively move the knee in the right lower extremity sensations intact light touch distally right lower extremity warm well-perfused compartments are soft compressible examination of the lower leg as well as thigh there is no subcutaneous emphysema no subcutaneous bullae appreciated Data 02/22/25 11:25 02/22/25 11:25 Other Labs: Lactic acid 1.5, CRP 35.3 ESR 7 Test Low Normal [facility] Urine Color Dark Yellow A Yellow Appearance Cloudy A CLEAR pH 6.0 5-7 Spec. [place] 1.031 H 1.005-1.030 UA Prot 3+ A Negative Ur Glu UA Negative Normal Ur Ketone 2+ H Negative Blood Urine 2+ A Negative Ur Nitrite Negative Negative Ur Bilirubin 1+ H Negative Urobilinogen 2.0 H Negative mg/dL Ur Santosh Esterase Trace A Negative Reflex Ur Micro Ur RBC 51-100 H 0-2 /hpf Ur WBC 0-5 0-5 /hpf Ur Squam Epi 6-10 0-5 /hpf Ur Bact None Seen NONE /hpf Ur Hyaline [employer] 8.67 /lpf Micro: Microbiology 02/22/25 11:27 Blood Culture - Preliminary Blood SPECIMEN COLLECTED 02/22/25 11:25 Blood Culture - Preliminary Blood SPECIMEN COLLECTED Other CT: Radiologist's impression: Ordering Provider/Ordering MD: Eun Thurman Date of Service: 02/22/25 Procedure(s): CT lower leg RT w con [id number] Accession Number(s): [id number] Report Number: [id number] WS: [email or web address] CT scan of the right leg, 02/22/2025 Clinical Data: infection; r/o abscess/necrotizing fasciitis DLP: 520.08 mGy centimeters Comparison: None. Findings: There is subcutaneous edema extending from the knee to the ankle. The edema is mostly in the anterior leg. No fluid-fluid levels or air-fluid levels are seen. There is no evidence of an abscess. There is no bone destruction. The muscles appear to be normal with no disruption. There is a fluid collection posterior to the knee which probably represents a Goel's cyst. CT/CT lower leg RT w con [id number] Impression: 1. Subcutaneous edema extending in the anterior aspect of the right leg from the knee to the ankle most consistent with severe cellulitis. 2. No evidence of abscess or tissue destruction. Ordering Provider/Ordering MD: Eun Thurman Date of Service: 02/22/25 Procedure(s): CT femur RT w con [id number] Accession Number(s): [id number] Report Number: [id number] ADDENDUM WS: [email or web address] DLP: 695.13 mGy centimeters Addendum Dictated By: Debra Brower MD Addendum Signed By: Debra Brower MD Signed Date/Time: 02/22/25 0862 Addendum Cosigned By: WS: [email or web address] CT scan of the right thigh and femur, 02/22/2025 Clinical Data: infection; r/o abscess/nec fasc Comparison: None. Findings: There is extensive subcutaneous fluid on the medial thigh extending from the right inguinal region to the knee. There are no air-fluid or fluid fluid levels. No evidence of abscess is seen. The muscle appears to be intact. There is no bone destruction or erosion. The arterial and venous system appears to be normal. There is a lymph node in the right inguinal region which shows perinodal edema. The right scrotum shows a fluid collection which could represent a simple or more complex cyst fluid collection.. No fluid-fluid level is seen within this fluid collection. There is a 3.5 cm fluid collection posterior to the knee which probably represents a Goel's cyst. CT/CT femur RT w con [id number] Impression: 1. Extensive subcutaneous fluid in the medial thigh extending the knee which probably represents cellulitis. 2. No evidence of abscess or muscle destruction is seen. 3. Fluid collection in right scrotum which may represent a simple cyst or more complex fluid collection.. A&P Assessment and plan 1. Acute lymphangitis of right lower extremity: 2. Cellulitis of right lower extremity: Plan: Labs reviewed CT scan reviewed for right lower EXTR CT scan reviewed for right femur On IV antibiotics Internal medicine on board as primary admitting patient Nephrology on board Orthopedics consulted At this point in time patient clinically has findings consistent with lymphangitis as well as cellulitis to the right lower extremity. CT scan does not demonstrate any soft tissue destruction or any acute active infection or fluid collection to be addressed from a surgical standpoint. From a clinical standpoint there is no signs or evidence of necrotizing fasciitis at this time. I did calculate his LRINEC score which is at a 0 based off of his labs on admission. At this point in time no recommendation for any acute orthopedic surgical intervention at this time orthopedic surgery team will sign off patient and follow peripherally if there is any questions pertaining patient's care or any acute change in patient's care feel free to contact orthopedics on-call. All questions were answered at this time. Patient understands agrees with current plan. All questions answered at this time. PDMP PDMP Reviewed: Not Reviewed Coding Level of Care Code Acute Code for Chg Fwd Diagnoses Acute lymphangitis of right lower extremity L03.125 Cellulitis of right lower extremity L03.115 Time Spent (min) 45
[2025-02-22 17:19] LABS: Hepatitis B Surface Antigen Non-Reactive (Nonreactive)
--- NOTE | 2025-02-22 18:17 | PHA.VACGOAL ---
Vancomycin Goal - Goal Vancomycin Goal:: 10-15 mg/L Vancomycin Indication:: SSTI - Therapy Current therapy:: Clindamycin, Pip/Tazo Day of therpy:: Day []of [] . Actual body weight (kg): 213 lb 7 oz - Data Labs: WBC 12.13 10^3/uL (3.29-11.43) H 02/22/25 11:25 RBC 5.25 10^6/uL (3.85-5.65) 02/22/25 11:25 Hgb 16.10 g/dL (11.27-16.99) 02/22/25 11:25 Hct 45.0 % (37-53) 02/22/25 11:25 MCV 85.7 fl (82-101) 02/22/25 11:25 MCH 30.7 pg (27-33) 02/22/25 11:25 MCHC 35.8 g/dL (30-55) 02/22/25 11:25 RDW 12.9 % (12.1-15.1) 02/22/25 11:25 Sodium 139 mmol/L (136-145) 02/22/25 11:25 Potassium 3.3 mmol/L (3.5-5.1) L 02/22/25 11:25 Chloride 99 mmol/L (98-107) 02/22/25 11:25 Carbon Dioxide 24 mmol/L (22-29) 02/22/25 11:25 Anion Gap 19.3 (5-19) H 02/22/25 11:25 BUN 12 mg/dL (6-20) 02/22/25 11:25 Creatinine 1.0 mg/dL (0.7-1.2) 02/22/25 11:25 GFR Calculation 79.4 mL/min (90-130) L 02/22/25 11:25 Last dialysis session:: N/A Drug administration history:: Medications Vancomycin HCl (Vancocin) 1,250 mg in 250 mls @ 166.667 mls/hr IV Q8H CHRIS Discontinued Medications Vancomycin HCl (Vancocin) 1,250 mg in 250 mls @ 166.667 mls/hr IV ONCE ONE; Protocol Stop: 02/22/25 14:14 Last Admin: 02/22/25 13:28 Dose: 166.67 mls/hr Treatment plan:: new consult Regimen:: LOADING DOSE OF 1250 MG X 1 GIVEN IN ER. STARTING ON MAINTENANCE DOSE OF 1250 MG Q8H PER DOSING PROTOCOL Follow up:: WILL CONTINUE TO MONITOR AND FOLLOW UP DAILY
[2025-02-23] VITALS (10 sets, daily range): BP systolic 129–145; BP diastolic 67–77; PULSE 65–82; RESP 15–18; TEMP 36.8–37.2; O2SAT 94–98
[2025-02-23] MEDS: piperacillin-tazobactam 3.375 GM in sodium chloride 0.9% (plus) 50 ML IV ×3 (01:32→16:50)
[2025-02-23] MEDS: heparin 5,000 unit/mL INJ 1 mL 5000 UNIT SUBCUT ×2 (03:53→15:33)
[2025-02-23 05:37] LABS: Hematocrit 37.7 % (37-53); Hemoglobin 13.30 g/dL (11.27-16.99); Mean Corpuscular HGB Conc 35.3 g/dL (30-55); Mean Corpuscular Hemoglobin 30.2 pg (27-33); Mean Corpuscular Volume 85.5 fl (82-101); Nucleated Red Blood Cells % 0 %; Platelet Count 135 10^3/cmm (157-399); Red Blood Count 4.41 10^6/uL (3.85-5.65); White Blood Count 8.43 10^3/uL (3.29-11.43)
[2025-02-23 06:02] LABS: Alanine Aminotransferase 37 U/L (0-41); Albumin Level 3.6 g/dL (3.5-5.2); Alkaline Phosphatase 51 U/L (40-130); Anion Gap 14.0 (5-19); Aspartate Amino Transferase 20 U/L (0-40); Blood Urea Nitrogen 10 mg/dL (6-20); Calcium 8.0 mg/dL (8.5-10.5); Carbon Dioxide 22 mmol/L (22-29); Chloride 100 mmol/L (98-107); Creatinine Clr Calc Pharmacy 139.2035; Globulin 3.3 g/dL (1.3-4.6); Glucose 104 mg/dL (65-115); Magnesium 1.8 mg/dL (1.7-2.3); Osmolality Calculated 275 mOsm/kg (285-295); Potassium 3.0 mmol/L (3.5-5.1); Sodium 133 mmol/L (136-145); Total Protein 6.9 g/dL (6.6-8.7)
--- NOTE | 2025-02-23 08:40 | USR_ITS ---
PROCEDURE INFORMATION: Exam: US Retroperitoneal, Complete, Kidneys and Bladder Exam date and time: 02/23/2025 12:57 PM Age: 49 years old Clinical indication: Abnormal findings; Abnormal lab test; Abnormal kidney function lab tests; Additional info: Tommy TECHNIQUE: Imaging protocol: Real-time ultrasound of the retroperitoneum with image documentation. Complete exam focused on the bilateral kidneys and urinary bladder. COMPARISON: US scrotum [id number] 02/22/2025 4:40 PM FINDINGS: Right kidney: Normal. The right kidney measures about 12.2 cm in craniocaudal dimension. The right renal cortex measures about 1.8 cm in thickness. No stones. No hydronephrosis. Left kidney: Normal. The left kidney measures about 12 cm in craniocaudal dimension. The left renal cortex measures up to 2.5 cm in thickness. No stones. No hydronephrosis. Urinary bladder: Unremarkable. No urinary bladder wall thickening appreciated. No bladder stones identified. US/US renal BI* [id number] IMPRESSION: Unremarkable kidneys and bladder.
--- NOTE | 2025-02-23 08:45 | PM.PN ---
Subjective Subjective: rT leg pain. denies blood y urine. no n/v/sob/cp. + fevers, right leg red and tender Medications: Reviewed: Yes Medication Review Details: Current Medications Acetaminophen (Acetaminophen 325 Mg Tablet) 650 mg PO Q6H PRN PRN Reason: Mild/Mod Pain Or Temp >/= 101 Last Admin: 02/22/25 23:54 Dose: 650 mg Heparin Sodium (Porcine) (Heparin 5,000 Unit/Ml Inj 1 Ml) 5,000 unit SUBCUT Q12H [facility]IS Last Admin: 02/23/25 03:53 Dose: 5,000 unit Sodium Chloride (Sodium Chloride 0.9%) 1,000 mls @ 125 mls/hr IV .Q8H [facility] Last Admin: 02/22/25 23:55 Dose: 125 mls/hr Clindamycin HCl/Dextrose (Cleocin) 600 mg in 50 mls @ 100 mls/hr IV Q8H [facility]IS; Protocol Last Infusion: 02/23/25 00:30 Dose: Infused Piperacillin Sod/Tazobactam (Sod 3.375 gm/ Sodium Chloride) 50 mls @ 12.5 mls/hr IV Q8H [facility] Last Infusion: 02/23/25 05:36 Dose: Infused Vancomycin HCl (Vancocin) 1,250 mg in 250 mls @ 166.667 mls/hr IV Q8H [facility] Last Infusion: 02/23/25 08:05 Dose: Infused Ondansetron HCl (Ondansetron 2 Mg/Ml Sdv 2 Ml) 4 mg IVP Q8H PRN PRN Reason: vomiting, or N/V if npo Vitals/I&O/Wt Last Vital Signs Temp 98.6 F 02/23/25 08:00 Pulse 80 02/23/25 08:00 Resp 17 02/23/25 08:00 BP 144/67 02/23/25 08:00 Pulse Ox 94 02/23/25 08:00 O2 Del Method Room Air 02/23/25 08:00 02/22/25 02/23/25 02/23/25 22:59 06:59 14:59 Intake Total 720 / 720 1100 / 1820 610 / 610 Output Total 350 / 350 Balance 720 / 720 750 / 1470 610 / 610 Weight last 48 hrs Weight 96.978 kg Weight 96.814 kg Physical Exam Narrative: Patient lying in bed vital signs noted. No apparent respiratory distress. HEENT normocephalic atraumatic. Neck is supple Lungs clear to auscultation. Heart regular no rubs or gallops. Abdomen is soft positive bowel sounds. Extremities right lower extremity erythematous changes streaking up his leg. +RLE tender. Trace rt leg edema. Neuro awake alert oriented x 3 Data 02/23/25 04:25 02/23/25 04:25 Micro: Microbiology 02/22/25 13:22 Urine Culture - Preliminary Urine,Clean Catch 02/22/25 11:27 Blood Culture - Preliminary Blood SPECIMEN COLLECTED 02/22/25 11:25 Blood Culture - Preliminary Blood SPECIMEN COLLECTED A&P Assessment and plan 1. Proteinuria: 49-year-old man with cellulitis chronic ibuprofen use. 1. right lower extremity cellulitis- per medicine and orthopedics 2. Urinalysis cloudy specific gravity 1031 urine protein 3+ urine ketones 2+ urine blood 2+ RBCs 51-100, white cells 0-5, squamous epithelial cells 6-10 hyaline casts present. I am concerned if patient has an infection related GN. Will send complements. urine microalbumin/ cr ratio 126 Urine Protein: cr ratio approx 400 -await hepatitis serologies, SAMANTHA [id number] DNA. We did advise patient to stop using NSAIDs which may be difficult for him. Will check a renal ultrasound. Given history of smoking and hematuria would also recommend urology evaluation which can be done as an outpatient. 3. Hypokalemia, replace and monitor 4. await CPK Patient seen and examined with the aid of a nurse using A/V equipment. Patient consented to telehealth. Plan: Antibiotics as per primary. Send basic serologies for hematuria and proteinuria and ketones in urine. replace potassium PDMP PDMP Reviewed: Not Reviewed Attestations Medical Necessity Statement*: severe rt leg infection Time Spent in Patient Care: 16 - 35 minutes (>than 50% of time spent in counselling and/or direct pt care on unit). Coding Level of Care Code Acute Code for g Fwd Diagnoses Proteinuria R80.9
[2025-02-23 11:41] LABS: Glucose Urine UA Negative (Normal); Nitrate Urine Negative (Negative); Specific Gravity, Urine 1.013 (1.005-1.030)
--- NOTE | 2025-02-23 12:07 | PC.CHAP ---
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 [] Patient/Family/Request visit [] Outpatient visit [] Follow-up visit [] Physician referral [] Code/Alert [x] Routine visit [] Staff referral [] Actively dying [] Patient sleeping [] Family support [] [] Out of room [] Palliative care [] [] Receiving care in room [] Pre-surgical visit [] Trauma [] Long length of stay [] ICU visit [] Other: Relational/Emotional Strength [x] Patient feels connected with others/family/visitors/staff [] Distress [] Loneliness/isolation [] Abandonment Spirituality of Patient [] Person of Frannie [] Attends [employer] of their Frannie [] Believes in Prayer [] Reads Bible or Lutheran materials [] There are Spiritual issues to be addressed [employer] 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 Education Teacher Interventions [x] Prayer [] Active listening [] Non-anxious presence [] Spiritual/emotional support [] Crisis/trauma care [] Spiritual counseling [] Bereavement support [] Provided bereavement packet [] Provided Bible/devotional materials [] Provided toy/stuffed animal, coloring book to patient or family member [] Provided Communion [] Anointing/Rose [] Salvation [] Completed spiritual assessment [] Other: Impact on Illness or Injury [] Angry [] Fearful [] Anxious [] Often cries [] Exhaustion [] Unable to work [] Unable to attend religious [] Unable to walk/stand [] Unable to read [] Unable to drive [] Unable to eat/drink [] Unable to sleep [] Unable to be with family [] Patient intubated [] Other: Summary Time spent with patient
[2025-02-23 12:28] LABS: Hepatitis B Surface Antigen Non-Reactive (Nonreactive)
[2025-02-23] MEDS: morphine 4 mg/mL SDV 1 mL 2 MG IVP ×2 (14:50→20:29)
--- NOTE | 2025-02-23 16:20 | P.PN_ITS ---
Subjective 2 Subjective: k 3.0 this am feeling slightly better febrile overnight says redness is improving slowly Vitals/I&O/Wt Last Vital Signs Temp 98.6 F 02/23/25 08:00 Pulse 80 02/23/25 08:00 Resp 17 02/23/25 14:50 BP 144/67 02/23/25 08:00 Pulse Ox 94 02/23/25 14:50 O2 Del Method Room Air 02/23/25 08:00 02/23/25 02/23/25 02/23/25 06:59 14:59 22:59 Intake Total 1100 / 1820 1710 / 1710 Output Total 350 / 350 Balance 750 / 1470 1710 / 1710 Weight last 48 hrs Weight 96.978 kg Weight 96.814 kg Physical Exam 2 Narrative: General: Alert oriented x3, patient seen sitting up in bed. HEENT: Normocephalic, atraumatic, EOMI, breathing room air Cardio: Tachycardic, normal S1-S2, Respiratory: Clear to auscultation bilaterally no wheezes no rhonchi GI: Abdomen soft, nontender, bowel sounds + Extremities: Pulses 2+, redness extending from right de la curz all the way up to thigh and groin area. Area is tender and warm to touch. Has been marked with skin marker. Patient states that this has been spreading within the last day. - IMPROVING Data 02/23/25 04:25 02/23/25 04:25 Micro: Microbiology 02/22/25 11:27 Blood Culture - Preliminary Blood NEGATIVE TO DATE 02/22/25 11:25 Blood Culture - Preliminary Blood NEGATIVE TO DATE 02/22/25 13:22 Urine Culture - Preliminary Urine,Clean Catch A&P Assessment and plan 1. Acute lymphangitis of right lower extremity: 2. Cellulitis of right lower extremity: 3. Hypokalemia: 4. Fever: 5. Dehydration: Plan: #Right leg cellulitis #SIRS criteria met secondary to cellulitis?criteria met by fever, tachycardia, #Hypokalemia #Dehydration #Fever secondary to above - Isiah the redness area with marker. ? Will place on vancomycin Zosyn and clindamycin for toxin suppression ? Appears to be possible lymphangitis. ? Check CT leg to rule out deeper infection. ? Patient denies any blunt trauma skin abrasions. No crepitus present in the skin. Will closely watch for possibility of necrotizing fasciitis?. ? Consult orthopedic surgery for evaluation. -Elevated CRP 35 ? Check sed rate, creatinine kinase ? Check respiratory panel 2. - Check blood cultures ? Patient appears to be dehydrated. Normal saline bolus 1 L to be given ? Placed on normal saline 125 cc/h ? Zofran for nausea ? Tylenol 650 every 6 hours as needed for pain ? Venous Dopplers negative for DVT. Full code DVT prophylaxis: Heparin SQ twice daily 02/23/2025 Evaluated by orthopedic surgery. Low suspicion of necrotizing fasciitis at this time Cellulitis is slowly improving however patient was febrile overnight. Continue IV antibiotics at this time. Continue clindamycin for total of 48 hours, vanc, Zosyn. Hep C reactive. Hep C RNA pending. Antistreptolysin antibody pending Combined nephritis workup ordered by nephrology. Await results. Scrotal ultrasound shows: Bilateral epididymal cysts measuring up to 1.9 cm on the right and 0.6 cm on the left. The right epididymal cyst is compatible with the cystic structure seen on CT from earlier the same day. Follow-up with urology outpatient. The ultrasound pending this morning. Microscopic hematuria noted on admission. Nephrology following. Hold off on NSAID use. Cultures pending. PDMP PDMP Reviewed: Not Reviewed Attestations 2 Medical Necessity Statement*: Severe cellulitis Diagnoses Acute lymphangitis of right lower extremity L03.125 Cellulitis of right lower extremity L03.115 Hypokalemia E87.6 Fever R50.9 Dehydration E86.0
[2025-02-24] VITALS (8 sets, daily range): BP systolic 131–165; BP diastolic 66–91; PULSE 60–75; RESP 14–18; TEMP 36.6–37; O2SAT 94–98
[2025-02-24] MEDS: piperacillin-tazobactam 3.375 GM in sodium chloride 0.9% (plus) 50 ML IV ×3 (00:38→17:56)
[2025-02-24] MEDS: heparin 5,000 unit/mL INJ 1 mL 5000 UNIT SUBCUT ×2 (03:15→14:47)
[2025-02-24 05:02] LABS: Hematocrit 37.6 % (37-53); Hemoglobin 13.00 g/dL (11.27-16.99); Mean Corpuscular HGB Conc 34.6 g/dL (30-55); Mean Corpuscular Hemoglobin 30.1 pg (27-33); Mean Corpuscular Volume 87.0 fl (82-101); Nucleated Red Blood Cells % 0 %; Platelet Count 155 10^3/cmm (157-399); Red Blood Count 4.32 10^6/uL (3.85-5.65); White Blood Count 6.25 10^3/uL (3.29-11.43)
[2025-02-24 05:21] LABS: Anion Gap 11.8 (5-19); Blood Urea Nitrogen 10 mg/dL (6-20); Calcium 8.0 mg/dL (8.5-10.5); Carbon Dioxide 23 mmol/L (22-29); Chloride 109 mmol/L (98-107); Creatinine Clr Calc Pharmacy 159.0897; Glucose 117 mg/dL (65-115); Magnesium 2.0 mg/dL (1.7-2.3); Osmolality Calculated 290 mOsm/kg (285-295); Potassium 3.8 mmol/L (3.5-5.1); Sodium 140 mmol/L (136-145)
--- NOTE | 2025-02-24 12:50 | P.PN_ITS ---
Vitals/I&O/Wt Last Vital Signs Temp 97.9 F 02/24/25 11:45 Pulse 60 02/24/25 11:45 Resp 17 02/24/25 11:45 BP 143/90 02/24/25 11:45 Pulse Ox 98 02/24/25 11:45 O2 Del Method Room Air 02/24/25 11:45 02/23/25 02/24/25 02/24/25 22:59 06:59 14:59 Intake Total 1600 / 3670 1350 / 5020 50 / 50 Output Total 200 / 900 400 / 1300 650 / 650 Balance 1400 / 2770 950 / 3720 -600 / -600 Weight last 48 hrs Weight 98.974 kg Weight 96.978 kg Weight 96.814 kg Physical Exam 2 Narrative: General: Alert oriented x3, patient seen sitting up in bed. HEENT: Normocephalic, atraumatic, EOMI, breathing room air Cardio: RRR, normal S1-S2, Respiratory: Clear to auscultation bilaterally no wheezes no rhonchi GI: Abdomen soft, nontender, bowel sounds + Extremities: Pulses 2+, redness extending from right de la cruz all the way up to thigh and groin area. Area is tender and warm to touch. Has been marked with skin marker. Patient states that this has been spreading within the last day. - SIGNIFICANT IMPROVEMENT knee erythema almost resolved Data 02/24/25 04:29 02/24/25 04:29 Micro: Microbiology 02/22/25 13:22 Urine Culture - Final Urine,Clean Catch 02/22/25 11:27 Blood Culture - Preliminary Blood NEGATIVE TO DATE 02/22/25 11:25 Blood Culture - Preliminary Blood NEGATIVE TO DATE A&P Assessment and plan 1. Acute lymphangitis of right lower extremity: 2. Cellulitis of right lower extremity: 3. Hypokalemia: 4. Fever: 5. Dehydration: Plan: #Right leg cellulitis #SIRS criteria met secondary to cellulitis?criteria met by fever, tachycardia, #Hypokalemia #Dehydration #Fever secondary to above - Isiah the redness area with marker. ? Will place on vancomycin Zosyn and clindamycin for toxin suppression ? Appears to be possible lymphangitis. ? Check CT leg to rule out deeper infection. ? Patient denies any blunt trauma skin abrasions. No crepitus present in the skin. Will closely watch for possibility of necrotizing fasciitis?. ? Consult orthopedic surgery for evaluation. -Elevated CRP 35 ? Check sed rate, creatinine kinase ? Check respiratory panel 2. - Check blood cultures ? Patient appears to be dehydrated. Normal saline bolus 1 L to be given ? Placed on normal saline 125 cc/h ? Zofran for nausea ? Tylenol 650 every 6 hours as needed for pain ? Venous Dopplers negative for DVT. Full code DVT prophylaxis: Heparin SQ twice daily 02/23/2025 Evaluated by orthopedic surgery. Low suspicion of necrotizing fasciitis at this time Cellulitis is slowly improving however patient was febrile overnight. Continue IV antibiotics at this time. Continue clindamycin for total of 48 hours, vanc, Zosyn. Hep C reactive. Hep C RNA pending. Antistreptolysin antibody pending Combined nephritis workup ordered by nephrology. Await results. Scrotal ultrasound shows: Bilateral epididymal cysts measuring up to 1.9 cm on the right and 0.6 cm on the left. The right epididymal cyst is compatible with the cystic structure seen on CT from earlier the same day. Follow-up with urology outpatient. The ultrasound pending this morning. Microscopic hematuria noted on admission. Nephrology following. Hold off on NSAID use. Cultures pending. 02/24/2025 Hep C reactive ,RNA pending Continue IV antibiotics at this time. stop clindamycin continue vanc, Zosyn. Hep C reactive. Hep C RNA pending. Antistreptolysin antibody pending Combined nephritis workup ordered by nephrology. Await results. Scrotal ultrasound shows: Bilateral epididymal cysts measuring up to 1.9 cm on the right and 0.6 cm on the left. The right epididymal cyst is compatible with the cystic structure seen on CT from earlier the same day. Follow-up with urology outpatient. The ultrasound pending this morning. Microscopic hematuria noted on admission. Nephrology following. Hold off on NSAID use. Cultures pending. vitals stable, afebrile overnight Will need urology follow up at discharge. PDMP PDMP Reviewed: Not Reviewed Attestations 2 Medical Necessity Statement*: Severe cellulitis, slowly improving, requires IV ABX Diagnoses Acute lymphangitis of right lower extremity L03.125 Cellulitis of right lower extremity L03.115 Hypokalemia E87.6 Fever R50.9 Dehydration E86.0
--- NOTE | 2025-02-24 21:11 | P.PN_ITS ---
Subjective 2 Subjective: no new c/o Medications: Reviewed: Yes Vitals/I&O/Wt Last Vital Signs Temp 98.3 F 02/24/25 20:00 Pulse 61 02/24/25 20:00 Resp 14 02/24/25 20:00 BP 154/91 02/24/25 20:00 Pulse Ox 97 02/24/25 20:00 O2 Del Method Room Air 02/24/25 20:00 02/24/25 02/24/25 02/24/25 06:59 14:59 22:59 Intake Total 1350 / 5020 1830 / 1830 480 / 2310 Output Total 400 / 1300 1000 / 1000 300 / 1300 Balance 950 / 3720 830 / 830 180 / 1010 Weight last 48 hrs Weight 98.974 kg Weight 96.978 kg Physical Exam 2 Narrative: Patient lying in bed vital signs noted. No apparent respiratory distress. HEENT normocephalic atraumatic. Neck is supple Lungs clear to auscultation. Heart regular no rubs or gallops. Abdomen is soft positive bowel sounds. Extremities right lower extremity erythematous changes streaking up his leg. +RLE tender. Trace rt leg edema. Neuro awake alert oriented x 3 Data 02/24/25 04:29 02/24/25 04:29 Micro: Microbiology 02/22/25 13:22 Urine Culture - Final Urine,Clean Catch A&P Assessment and plan 1. Proteinuria: 49-year-old man with cellulitis chronic ibuprofen use. 1. Right lower extremity cellulitis- per medicine and orthopedics 2. Proteinuria and Microscopic hematuria : Urinalysis on 02/22/25 - urine protein 3+ urine ketones 2+ urine blood 2+ RBCs 51-100, urine microalbumin/ cr ratio 126 Urine Protein: cr ratio approx 400 -await hepatitis serologies, SAMANTHA [id number] DNA and complements - repeat UA 02/23/25 - hows only trace protein and 11-20 RBCs Will check a renal ultrasound. Given history of smoking and hematuria would also recommend urology evaluation which can be done as an outpatient. 3. Hypokalemia, replaced Patient seen and examined with the aid of a nurse using A/V equipment. Patient consented to telehealth. PDMP PDMP Reviewed: Not Reviewed Attestations 2 Medical Necessity Statement*: per medcine Coding Level of Care Code Acute Code for Chg Fwd Diagnoses Proteinuria R80.9
[2025-02-25] VITALS (8 sets, daily range): BP systolic 151–172; BP diastolic 83–94; PULSE 49–74; RESP 15–18; TEMP 36.6–37; O2SAT 95–98
[2025-02-25] MEDS: piperacillin-tazobactam 3.375 GM in sodium chloride 0.9% (plus) 50 ML IV ×3 (02:01→17:59)
[2025-02-25] MEDS: heparin 5,000 unit/mL INJ 1 mL 5000 UNIT SUBCUT ×2 (02:01→15:54)
[2025-02-25 04:09] LABS: Hematocrit 38.4 % (37-53); Hemoglobin 13.30 g/dL (11.27-16.99); Mean Corpuscular HGB Conc 34.6 g/dL (30-55); Mean Corpuscular Hemoglobin 30.3 pg (27-33); Mean Corpuscular Volume 87.5 fl (82-101); Nucleated Red Blood Cells % 0 %; Platelet Count 203 10^3/cmm (157-399); Red Blood Count 4.39 10^6/uL (3.85-5.65); White Blood Count 6.96 10^3/uL (3.29-11.43)
--- NOTE | 2025-02-25 14:36 | P.PN_ITS ---
Subjective 2 Subjective: no new c/o Medications: Reviewed: Yes Vitals/I&O/Wt Last Vital Signs Temp 98.3 F 02/25/25 10:58 Pulse 60 02/25/25 10:58 Resp 17 02/25/25 10:58 BP 152/85 02/25/25 10:58 Pulse Ox 95 02/25/25 10:58 O2 Del Method Room Air 02/25/25 10:58 02/24/25 02/25/25 02/25/25 22:59 06:59 14:59 Intake Total 530 / 2360 300 / 2660 868.75 / 868.75 Output Total 725 / 1725 350 / 2075 525 / 525 Balance -195 / 635 -50 / 585 343.75 / 343.75 Weight last 48 hrs Weight 99.478 kg Weight 98.974 kg Physical Exam 2 Narrative: Patient lying in bed vital signs noted. No apparent respiratory distress. HEENT normocephalic atraumatic. Neck is supple Lungs clear to auscultation. Heart regular no rubs or gallops. Abdomen is soft positive bowel sounds. Extremities right lower extremity erythematous changes streaking up his leg. +RLE tender. Trace rt leg edema. Neuro awake alert oriented x 3 Data 02/25/25 02:54 02/24/25 04:29 A&P Assessment and plan 1. Proteinuria: 49-year-old man with cellulitis chronic ibuprofen use. 1. Right lower extremity cellulitis- per medicine and orthopedics 2. Proteinuria and Microscopic hematuria : Urinalysis on 02/22/25 - urine protein 3+ urine ketones 2+ urine blood 2+ RBCs 51-100, -urine microalbumin/ cr ratio 126, Urine Protein: cr ratio approx 400 - repeat UA 02/23/25 - hows only trace protein and 11-20 RBCs - Improving - renal US normal , complements , SAMANTHA , DS DNA and ANCA pending - Noted + Hep C antibody and + hep B core ab, --> refer to hepatology as out pt - Refer to out pt Nephrology @ [facility] --> should repeat UA once acute infection resolved , and if continues to have Microscopic hematuria and proteinuria --> should consider renal bx as outpt . Hep C could cause GN . Given history of smoking and hematuria would also recommend urology evaluation which can be done as an outpatient. 3. Hypokalemia, replaced Patient seen and examined with the aid of a nurse using A/V equipment. Patient consented to telehealth. PDMP PDMP Reviewed: Not Reviewed Attestations 2 Medical Necessity Statement*: per matheus Coding Level of Care Code Acute Code for Chg Fwd Diagnoses Proteinuria R80.9
--- NOTE | 2025-02-25 16:29 | P.PN_ITS ---
Subjective 2 Subjective: 49-year-old male works in [employer]. He states he like to get back to work but feels that his leg is getting better slowly. 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 Patient is hepatitis B core antibody positive and hepatitis C antibody positive. He states he found out he was hep CV positive just last year when he was in jail. Patient states right leg became sore and swelled up some starting Tuesday. He denies any particular injury. Patient states his leg is feeling better but hurts when he stands Vitals/I&O/Wt Last Vital Signs Temp 98.3 F 02/25/25 10:58 Pulse 60 02/25/25 10:58 Resp 17 02/25/25 10:58 BP 152/85 02/25/25 10:58 Pulse Ox 95 02/25/25 10:58 O2 Del Method Room Air 02/25/25 10:58 02/25/25 02/25/25 02/25/25 06:59 14:59 22:59 Intake Total 300 / 2660 868.75 / 868.75 250 / 1118.75 Output Total 350 / 2075 525 / 525 Balance -50 / 585 343.75 / 343.75 250 / 593.75 Weight last 48 hrs Weight 99.478 kg Weight 98.974 kg Physical Exam 2 Narrative: General well-developed well-nourished muscular male in no acute cardiopulmonary distress CV regular rate and rhythm Lungs clear to auscultation bilaterally Abdomen positive bowel tones soft nontender Calves erythema of the right lower extremity and mild tenderness. With flexion extension of the ankle and palpation of calf he is not tender to palpation. He does have a modest ropelike cord going up the medial groin and mild adenopathy in the right groin. This is not significantly tender but is mildly painful per his report. Data 02/25/25 02:54 02/24/25 04:29 A&P Assessment and plan 1. Acute lymphangitis of right lower extremity: Slow but progressive improvement. Blood cultures and urine culture negative. Venous Doppler was negative for DVT 2. Cellulitis of right lower extremity: As above 3. Hepatitis C antibody positive: Awaiting RNA count 4. Hepatitis B antibody positive: Awaiting hepatitis B surface antigen and antigen confirmation 5. Nicotine dependence due to vaping non-tobacco product: Start nicotine patch 14 mg daily. Patient was counseled about the increased risk of wounds and vascular disease with vaping nicotine which causes vasoconstriction vascular disease 6. Microscopic hematuria: Will need to follow-up outpatient with urology for potential cystoscopy Plan: 02/24/2025 Hep C reactive ,RNA pending Continue IV antibiotics at this time. stop clindamycin continue vanc, Zosyn. Hep C reactive. Hep C RNA pending. Antistreptolysin antibody normal Combined nephritis workup ordered by nephrology. Await results. Scrotal ultrasound shows: Bilateral epididymal cysts measuring up to 1.9 cm on the right and 0.6 cm on the left. The right epididymal cyst is compatible with the cystic structure seen on CT from earlier the same day. Follow-up with urology outpatient. The ultrasound pending this morning. Microscopic hematuria noted on admission. Nephrology following. Hold off on NSAID use. Cultures pending. vitals stable, afebrile overnight Will need urology follow up at discharge. PDMP PDMP Reviewed: Not Reviewed Attestations 2 Medical Necessity Statement*: Patient remains in hospital for IV antibiotics anticipate 1-2 more midnight Coding Level of Care Code 24835 Diagnoses Acute lymphangitis of right lower extremity L03.125 Cellulitis of right lower extremity L03.115 Hepatitis C antibody positive R76.8 Hepatitis B antibody positive R76.8 Nicotine dependence due to vaping non-tobacco product F17.200 Microscopic hematuria R31.29 Time Spent (min) 35
[2025-02-25 22:10] LABS: Glucose Urine UA Negative (Normal); Nitrate Urine Negative (Negative); Specific Gravity, Urine 1.020 (1.005-1.030)
[2025-02-25 22:12] LABS: Add Urine Microscopic? YES
[2025-02-26] VITALS (7 sets, daily range): BP systolic 146–156; BP diastolic 82–90; PULSE 58–67; RESP 16–19; TEMP 36.8–36.9; O2SAT 94–98
[2025-02-26] MEDS: piperacillin-tazobactam 3.375 GM in sodium chloride 0.9% (plus) 50 ML IV ×2 (00:50→08:56)
[2025-02-26] MEDS: heparin 5,000 unit/mL INJ 1 mL 5000 UNIT SUBCUT ×2 (03:17→14:24)
[2025-02-26 03:25] LABS: Anti-Double Strand DNA AB 2 IU/mL
[2025-02-26 08:13] LABS: Creatinine Clr Calc Pharmacy 126.2591
[2025-02-26 09:10] LABS: Anti-Double Strand DNA AB 2 IU/mL
--- NOTE | 2025-02-26 11:12 | P.PN_ITS ---
Subjective 2 Subjective: no new c/o Medications: Reviewed: Yes Vitals/I&O/Wt Last Vital Signs Temp 98.3 F 02/26/25 08:56 Pulse 66 02/26/25 08:56 Resp 18 02/26/25 08:56 BP 154/89 02/26/25 08:56 Pulse Ox 98 02/26/25 08:10 O2 Del Method Room Air 02/26/25 04:00 02/25/25 02/26/25 02/26/25 22:59 06:59 14:59 Intake Total 900 / 1768.75 900 / 2668.75 850 / 850 Output Total 200 / 725 500 / 1225 400 / 400 Balance 700 / 1043.75 400 / 1443.75 450 / 450 Weight last 48 hrs Weight 101.469 kg Weight 99.478 kg Physical Exam 2 Narrative: Patient lying in bed vital signs noted. No apparent respiratory distress. HEENT normocephalic atraumatic. Neck is supple Lungs clear to auscultation. Heart regular no rubs or gallops. Abdomen is soft positive bowel sounds. Extremities right lower extremity erythematous changes streaking up his leg. +RLE tender. Trace rt leg edema. Neuro awake alert oriented x 3 Data 02/25/25 02:54 02/26/25 04:27 A&P Assessment and plan 1. Proteinuria: 49-year-old man with cellulitis chronic ibuprofen use. 1. Right lower extremity cellulitis- per medicine and orthopedics 2. Proteinuria and Microscopic hematuria : Urinalysis on 02/22/25 - urine protein 3+ urine ketones 2+ urine blood 2+ RBCs 51-100, -urine microalbumin/ cr ratio 126, Urine Protein: cr ratio approx 400 - repeat UA 02/25/25 - no proteinuria and No hemaruria - renal US normal , complements , SAMANTHA , DS DNA and ANCA pending - Noted + Hep C antibody and + hep B core ab, --> refer to hepatology as out pt . Given history of smoking and hematuria would also recommend urology evaluation which can be done as an outpatient. 3. Hypokalemia, replaced will sign off Patient seen and examined with the aid of a nurse using A/V equipment. Patient consented to telehealth. PDMP PDMP Reviewed: Not Reviewed Attestations 2 Medical Necessity Statement*: per matheus Coding Level of Care Code Acute Code for Chg Fwd Diagnoses Proteinuria R80.9
[2025-02-26 11:25] LABS: ANCA Screen NEGATIVE (NEGATIVE)
[2025-02-26 14:30] LABS: Glomerular Bsmt Membrane IGG <1.0 AI
[2025-02-26 17:14] LABS: HEP C RNA Viral Load Quant 10400 IU/mL (NOT DETECTED); HEP C RNA Viral Load Quant 4.02 Log IU/mL (NOT DETECTED)
--- NOTE | 2025-02-26 17:37 | P.DS_ITS ---
Discharge Providers Date of Admission: 02/22/25 16:08 Date of Discharge: February 26, 2025 Attending Provider at Admission: Kae Heaton MD Attending Provider at Discharge: Tino Metz MD Consults: Nephrology Dr. Gloria Mendoza Orthopedics Dr. Femi Rashid Primary Care Provider: ABRAN Sanchez Diagnoses at Discharge Discharge Diagnosis 1. Cellulitis of right lower extremity: Details from hospital stay: This was slow to improve but there is marked improvement overnight with elevation of his leg and inflamed area above the level of his heart. He is on vancomycin and Zosyn but blood cultures are negative and white count normalized day after admission Patient will be switched to clindamycin and Bactrim 2. Proteinuria: Details from hospital stay: Patient to follow with urology to evaluate microscopic hematuria in the setting of history of tobacco abuse. Patient has normal renal ultrasound but labs including complements, SAMANTHA, DS DNA and ANCA are pending roteinuria and Microscopic hematuria : Urinalysis on 02/22/25 - urine protein 3+ urine ketones 2+ urine blood 2+ RBCs 51-100, -urine microalbumin/ cr ratio 126, Urine Protein: cr ratio approx 400 3. Microscopic hematuria: Details from hospital stay: Follow-up with urology 4. Nicotine dependence due to vaping non-tobacco product: Details from hospital stay: Patient was counseled and encouraged to quit as well is prescribed a nicotine patch but he declined to use it states he does not need 5. Hepatitis B antibody positive: Details from hospital stay: Follow-up outpatient with PCP 6. Hepatitis C antibody positive: Details from hospital stay: He follow-up outpatient with PCP Reason for Visit Reason for Visit: Dr bert Arora Leg Pain Fever Brief History: Jani Gonzales is a 49 year old male With no significant past medical history other than psychiatric care as listed per patient's primary care notes presented to the hospital today for complaint of right leg cellulitis. He has been developing upper respiratory like symptoms including cough congestion rhinorrhea nasal congestion with some diarrhea and low-grade fevers. He states his kids at home have been sick. He started developing redness and streaking to his right lower leg. He went to his primary care doctor today where the leg was marked with skin marker and he was sent to the ER for further evaluation. He does have lymphadenopathy involving his right leg. He does have red splotches on right groin area as well. This feels slightly nauseous however denies vomiting at this time and active diarrhea. States he has a fever however has not checked his temperature at home. In the ER today was 100.2. He states the redness started off on his right de la cruz and now he started spreading to his knee and tracking up all the way to the groin. It appears to be in lymphatic distribution. 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 He states he like to get back to work but feels that his leg is getting better slowly. 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 Patient is hepatitis B core antibody positive and hepatitis C antibody positive. He states he found out he was hep CV positive just last year when he was in [facility]. Patient states right leg became sore and swelled up some starting Tuesday. He denies any particular injury. Patient states his leg is feeling better but hurts when he stands Patient was seen by Dr. Rashid and we had initially some concerns about possible fasciitis or abscess but that was excluded. Patient also had a femur CT which was negative for findings of osteomyelitis. Scrotal ultrasound showed a 1.9 cm on the right and 0.6 cm on the left bilateral epididymal cysts. Renal ultrasound unremarkable Patient has microscopic hematuria and some studies for hepatitis B and C+ antibodies as well as test to follow-up proteinuria that he should see his PCP for Physical Exam Narrative: General well-developed well-nourished male in no acute cardiopulmonary stress CV regular rate and rhythm Lungs clear to auscultation bilaterally Abdomen positive bowel tones soft nontender Calves right leg erythema in the lower leg is decreased. Swelling has decreased markedly since yesterday with pruning of the skin. The cord up the medial leg is diminished Discharge Data Studies Completed and Pending Completed Studies During Hospitalization Category Date Time Status CT femur RT w con [id number] Stat Cat Scan 02/22/25 13:[address] lower leg RT w con [id number] Stat Cat Scan 02/22/25 12:59 Completed XR chest 1V portable [id number] Stat Exams 02/22/25 11:49 Completed US renal BI* [id number] Routine Ultrasound 02/23/25 08:40 Completed US scrotum [id number] Stat Ultrasound 02/22/25 15:38 Completed US venous duplex lower extremity RT [CV venous duplex Ultrasound 02/22/25 12:01 [place] [id number]] Stat Pending at discharge Category Date Time Status Anti-Neutrophil Cytoplasmic AB Routine Lab 02/23/25 11:30 Received Blood Culture Stat Lab 02/22/25 11:27 Results Radiology Impressions Chest X-Ray 02/22/25 11:49 Impression: Hyperinflation and atherosclerosis. Lower Extremity CT 02/22/25 12:59 Impression: 1. Subcutaneous edema extending in the anterior aspect of the right leg from the knee to the ankle most consistent with severe cellulitis. 2. No evidence of abscess or tissue destruction. Femur CT 02/22/25 13:47 Impression: 1. Extensive subcutaneous fluid in the medial thigh extending the knee which probably represents cellulitis. 2. No evidence of abscess or muscle destruction is seen. 3. Fluid collection in right scrotum which may represent a simple cyst or more complex fluid collection.. Scrotum Ultrasound 02/22/25 15:38 IMPRESSION: Bilateral epididymal cysts measuring up to 1.9 cm on the right and 0.6 cm on the left. The right epididymal cyst is compatible with the cystic structure seen on CT from earlier the same day. Renal Ultrasound 02/23/25 08:40 IMPRESSION: Unremarkable kidneys and bladder. Laboratory Results WBC 6.96 10^3/uL (3.29-11.43) 02/25/25 02:54 RBC 4.39 10^6/uL (3.85-5.65) 02/25/25 02:54 Hgb 13.30 g/dL (11.27-16.99) 02/25/25 02:54 Hct 38.4 % (37-53) 02/25/25 02:54 MCV 87.5 fl (82-101) 02/25/25 02:54 MCH 30.3 pg (27-33) 02/25/25 02:54 MCHC 34.6 g/dL (30-55) 02/25/25 02:54 RDW 13.2 % (12.1-15.1) 02/25/25 02:54 Plt Count 203 10^3/cmm (157-399) D 02/25/25 02:54 MPV 11.8 fL (7.4-10.4) H 02/25/25 02:54 Neut % (Auto) 67.9 % 02/25/25 02:54 Lymph % (Auto) 20.0 % 02/25/25 02:54 [place] % (Auto) 8.2 % 02/25/25 02:54 Eos % (Auto) 3.2 % 02/25/25 02:54 Baso % (Auto) 0.4 % 02/25/25 02:54 Neut # (Auto) 4.73 10^3/uL (1.8-7.7) 02/25/25 02:54 Lymph # (Auto) 1.4 10^3/uL (0.8-4.8) 02/25/25 02:54 [place] # (Auto) 0.6 10^3/uL (0.2-0.9) 02/25/25 02:54 Eos # (Auto) 0.2 10^3/uL (0.0-0.8) 02/25/25 02:54 Baso # (Auto) 0.0 10^3/uL (0.0-0.1) 02/25/25 02:54 Nucleated RBC % (auto) 0 % 02/25/25 02:54 Nucleated RBCs # 0.0 /100WBC 02/25/25 02:54 ESR 7 mm/hr (0-10) 02/22/25 11:25 Sodium 140 mmol/L (136-145) 02/24/25 04:29 Potassium 3.8 mmol/L (3.5-5.1) 02/24/25 04:29 Chloride 109 mmol/L (98-107) H 02/24/25 04:29 Carbon Dioxide 23 mmol/L (22-29) 02/24/25 04:29 Anion Gap 11.8 (5-19) 02/24/25 04:29 BUN 10 mg/dL (6-20) 02/24/25 04:29 Creatinine 0.9 mg/dL (0.7-1.2) 02/26/25 04:27 GFR Calculation 89.7 mL/min (90-130) L 02/26/25 04:27 Glucose 117 mg/dL (65-115) H 02/24/25 04:29 Estimat Average Glucose 105 02/22/25 11:25 Hemoglobin A1c 5.3 % (4.0-6.0) 02/22/25 11:25 Calculated Osmolality 290 mOsm/kg (285-295) 02/24/25 04:29 Lactic Acid 1.5 mmol/L (0.5-2.2) 02/22/25 11:25 Calcium 8.0 mg/dL (8.5-10.5) L 02/24/25 04:29 Magnesium 2.0 mg/dL (1.7-2.3) 02/24/25 04:29 Total Bilirubin 0.8 mg/dL (0.15-1.2) 02/23/25 04:25 AST 20 U/L (0-40) 02/23/25 04:25 ALT 37 U/L (0-41) 02/23/25 04:25 Alkaline Phosphatase 51 U/L (40-130) 02/23/25 04:25 Creatine Kinase 80 U/L (39-308) 02/23/25 04:25 C-Reactive Protein 35.3 mg/L (0.0-4.9) H 02/22/25 11:25 Total Protein 6.9 g/dL (6.6-8.7) D 02/23/25 04:25 Albumin 3.6 g/dL (3.5-5.2) 02/23/25 04:25 Globulin 3.3 g/dL (1.3-4.6) 02/23/25 04:25 Triglycerides 75 mg/dL (0-150) 02/22/25 11:25 Cholesterol 130 mg/dL (0-200) 02/22/25 11:25 LDL Cholesterol, Calc 81 mg/dL (50-129) 02/22/25 11:25 HDL Cholesterol 34 mg/dL (60-100) L 02/22/25 11:25 LDL/HDL Ratio 2.38 RATIO (0.00-3.22) 02/22/25 11:25 Cholesterol/HDL Ratio 3.82 mg/dL (1.0-5.00) 02/22/25 11:25 Procalcitonin 0.07 ng/mL (0-0.5) 02/22/25 11:25 Urine Color Yellow (Yellow) 02/25/25 20:26 Urine Appearance Clear (CLEAR) 02/25/25 20: Urine pH 6.5 (5-7) 02/25/25 20: Ur Specific [place] 1.020 (1.005-1.030) 02/25/25 20:26 Urine Protein Negative (Negative) 02/25/25 20:26 Urine Glucose (UA) Negative (Normal) 02/25/25 20: Urine Ketones Negative (Negative) 02/25/25 20:26 Urine Blood Non-haemolysed trace (Negative) 02/25/25 20:26 Urine Nitrate Negative (Negative) 02/25/25 20: Urine Bilirubin Negative (Negative) 02/25/25 20: Urine Urobilinogen 0.2 mg/dL (Negative) 02/25/25 20:26 Ur Leukocyte Esterase Negative (Negative) 02/25/25 20: Urine RBC 0-2 /hpf (0-2) 02/25/25 20: Urine WBC 0-5 /hpf (0-5) 02/25/25 20:26 Ur Squamous Epith Cells 0-5 /hpf (0-5) 02/25/25 20: Amorphous Sediment Not Reportable 02/25/25 20:26 Urine Bacteria None seen /hpf (NONE) 02/25/25 20:26 Hyaline Casts 0-4 /lpf H 02/25/25 20:26 Ur Random Microalbumin 49 ug/dL (0-20) H 02/22/25 13:22 U Random Total Protein 156 mg/dL 02/22/25 13:22 Urine Creatinine 389 mg/dL (39-259) H 02/22/25 13:22 Urine Creatinine 390 mg/dL (39-259) H 02/22/25 13:22 Microalb/Creat Ratio 126 mg/dL (0-20) H 02/22/25 13:22 Vancomycin Trough 14.1 ug/mL (10-15) 02/26/25 04:27 SAMANTHA Screen Negative (NEGATIVE) 02/23/25 11:30 ANCA Screen Negative (NEGATIVE) 02/22/25 20:00 ANCA Titer Not Reportable 02/22/25 20:00 Anti-ds DNA IgG Ab 2 IU/mL 02/23/25 11:30 Glomerular Base Mem IgG <1.0 AI 02/22/25 20:00 Complement C3 137 mg/dL (90-180) 02/23/25 04:25 Complement C4 24 mg/dL (10-40) 02/23/25 04:25 Adenovirus (PCR) Not detected (NOT DETECT) 02/22/25 13:22 C. pneumoniae DNA (PCR) Not detected (NOT DETECT) 02/22/25 13:22 Coronavirus 229E (PCR) Not detected (NOT DETECT) 02/22/25 13:22 Hep Bs Antigen Non-reactive (Nonreactive) 02/23/25 11:30 Hep Bs Antigen Non-reactive (NON-REACTIVE) 02/23/25 11:30 Hep Bs Ag Confirmation Not Reportable 02/23/25 11:30 Hep Bs Antibody 144.4 (11.5-1000) 02/23/25 11:30 Hep B Core Total Ab Reactive (Nonreactive) H 02/23/25 11:30 Hepatitis C Antibody Reactive (Nonreactive) H 02/23/25 11:30 HCV RNA Qnt PCR Amp&Det Cancelled 02/23/25 12:29 HCV RNA (PCR) IUs/ml Cancelled 02/23/25 12:29 HCV RNA (PCR) IU log10 Cancelled 02/23/25 12:29 Human Metapneumovir PCR Not detected (NOT DETECT) 02/22/25 13:22 Influenza A (H1) PCR Not detected (NOT DETECT) 02/22/25 13:22 Influ A (H1/09) PCR Not detected (NOT DETECT) 02/22/25 13:22 Influenza A (H3) PCR Not detected (NOT DETECT) 02/22/25 13:22 Influenza Type A (PCR) Not detected (NOT DETECT) 02/22/25 13:22 Influenza Type B (PCR) Not detected (NOT DETECT) 02/22/25 13:22 M. pneumoniae (PCR) Not detected (NOT DETECT) 02/22/25 13:22 Parainfluenza 1 (PCR) Not detected (NOT DETECT) 02/22/25 13:22 Parainfluenza 2 (PCR) Not detected (NOT DETECT) 02/22/25 13:22 Parainfluenza 3 (PCR) Not detected (NOT DETECT) 02/22/25 13:22 Parainfluenza 4 (PCR) Not detected (NOT DETECT) 02/22/25 13:22 RSV Type A (PCR) Not detected (NOT DETECT) 02/22/25 13:22 RSV Type B (PCR) Not detected (NOT DETECT) 02/22/25 13:22 Entero/Rhino (PCR) Not detected (NOT DETECT) 02/22/25 13:22 SARS-CoV-2 (PCR) Not detected (NOT DETECT) 02/22/25 13:22 Anti-Streptolysin O Ab 112 IU/mL (<200) 02/23/25 11:30 Vitals Last Vital Signs Temp 98.3 F 02/26/25 16:22 Pulse 66 02/26/25 16:22 Resp 17 02/26/25 16:22 BP 146/90 02/26/25 16:22 Pulse Ox 95 02/26/25 16:22 O2 Del Method Room Air 02/26/25 04:00 Discharge Plan Discharge Patient Disposition: Home Condition: Stable Prescriptions: New clindamycin HCl [Cleocin HCl] 300 mg capsule 300 mg PO Q6H 7 Days Qty: 28 0RF sulfamethoxazole-trimethoprim [Bactrim DS] 800-160 mg tablet 1 tab PO BID Qty: 20 0RF acetaminophen 325 mg Tablet 650 mg PO Q6H PRN (Reason: Mild/Mod Pain Or Temp >/= 101) Qty: 30 0RF Changed ibuprofen [Advil] 200 mg Tablet 800 mg PO 3XD PRN (Reason: Fever Or Pain) Qty: 30 0RF Discontinued Advil PM 200-38 mg Tablet 2 tab PO BEDTIME Night Time Cold 12.5-30-1,000 mg/30 mL Liquid 30 ml PO QID Discharge Order = DC NOW: Discharge Order (Routine); Ordered 02/26/25 Ordered By: Tino Metz Referrals: Waqas Joy [Referring, Urology] Harjit Meneses, [employer] [Primary Care Provider, Family Practice] Discharge Diet: Usual diet Discharge Activity: Limit activity as instructed Patient Instructions: Opioid Safety, Patient Portal & Becky Instructions Activity Restrictions/Additional Instructions: Rest and keep your right leg elevated above the level of your heart whenever not walking. You can return to work once the swelling in your leg has resolved completely and the discoloration is fading Return for worsened pain fevers or swelling of the right leg You have microscopic hematuria which means blood in your urine that we see on microscope in the lab but not apparent to your naked eye. This could represent a bladder cancer or other less worrisome inflammation inside your bladder or kidney stone. Please follow-up with urology to make sure that this is addressed and that something serious is not missed Discharge Attestations Time Spent in Discharge Care*: greater than 30 min Time Spent in Smoking Cessation: Counseled yesterday 4 minutes Quality Metrics Clinical Quality Measures [ No reported AMI, CVA or VTE this stay] Coding Level of Care Code 46942 Diagnoses Cellulitis of right lower extremity L03.115 Proteinuria R80.9 Microscopic hematuria R31.29 Nicotine dependence due to vaping non-tobacco product F17.200 Hepatitis B antibody positive R76.8 Hepatitis C antibody positive R76.8 Time Spent (min) 33
--- NOTE | 2025-02-26 19:50 | PC.NURSE ---
Discussed discharge with patient. New medications, stopped and changed medications. Follow up appointments and to call the offices if no contact with patient within two business days. Keep leg elevated while not walking. Medications sent to [facility]. Patient verbalized understanding.
[2025-02-27 12:00] LABS: ANCA Screen NEGATIVE (NEGATIVE)
== END 2025-02-26 18:54 | disposition home or self-care (01) | DRG 603 ==
LOC: ER 13:10 → MEDSURG 16:09
PROVIDERS: Hospitalist; Internal Medicine Nephrology; Admitting Provider Internal Medicine; Emergency Provider Physician Assistant; Family Provider Nurse Practitioner; PCP Nurse Practitioner; Visit Provider Internal Medicine
DX: L03.115 Cellulitis of right lower limb (principal); B19.10 Unspecified viral hepatitis B without hepatic coma; L03.125 Acute lymphangitis of right lower limb; R80.9 Proteinuria, unspecified; R31.29 Other microscopic hematuria; F17.290 Nicotine dependence, other tobacco product, uncomplicated; L72.0 Epidermal cyst; E87.6 Hypokalemia; E86.0 Dehydration; R82.90 Unspecified abnormal findings in urine; B18.2 Chronic viral hepatitis C; Z20.9 Contact with and (suspected) exposure to unspecified communicable disease; Z11.52 Encounter for screening for COVID-19; F15.11 Other stimulant abuse, in remission; Z79.1 Long term (current) use of non-steroidal anti-inflammatories (NSAID)
CPT/HCPCS: 36415; 71045; 73701; 76770; 76870; 80048; 80053; 80061; 80202; 81001; 82044; 82550; 82565; 82570; 83036; 83520; 83605; 83735; 84145; 84156; 85025; 85651; 86036; 86038; 86060; 86140; 86160; 86225; 86704; 86705; 86706; 86803; 87040; 87086; 87340; 87486; 87522; 87581; 87633; 93971; 94664; 96365; 96367; 96372; 99285; J1644; J2270; J2543; J3373; J3490; J7030; J9999; Q3014

== ENCOUNTER → 2025-03-04 10:46 | Outpatient (BNVA) | payer SELFPAY | DX: L03.115 Cellulitis of right lower limb (principal) | CPT/HCPCS: 80053; 85025 ==

== ENCOUNTER 2025-03-20 07:23 | Outpatient (CLI) | payer SELFPAY ==
--- NOTE | 2025-03-20 07:15 | US_ITS ---
WS: [id number] RIGHT UPPER QUADRANT ULTRASOUND HISTORY: hep b c COMPARISON: None available. Liver: 19.3 cm in length. Moderately enlarged liver. No intrahepatic mass. There is very minimal coarse echotexture within the liver. Minimal surface nodularity. Portal Vein: Normal hepatopetal flow with monophasic waveform. Gallbladder: Normally distended gallbladder with no stones or wall thickening. CBD: 0.3 cm Pancreas: Normal size and echogenicity. Right kidney: 11.9 cm in length. Normal size and echogenicity. No hydronephrosis or mass. Aorta and IVC: Unremarkable abdominal aorta and IVC. No ascites. US/US liver [id number] IMPRESSION: 1. Mildly enlarged liver with mild surface nodularity suggesting mild changes of hepatocellular disease. 2. Negative gallbladder. 3. No bile duct dilatation.
== END 2025-03-20 07:24 | disposition home or self-care (01) ==
LOC: RAD 07:24
PROVIDERS: Visit Provider Family Medicine
DX: R16.0 Hepatomegaly, not elsewhere classified (principal); R76.89 Other specified abnormal immunological findings in serum
CPT/HCPCS: 76705

== ENCOUNTER 2025-04-04 16:34 | Emergency (ER) | payer SELFPAY ==
--- OUTSIDE RECORDS SUMMARY | 2025-04-03 09:00 | XMS_ITS ---
Author Organization [facility] Address [address] [place] [address] Care Team Providers Care Public Welfare Worker Name Role Phone Harjit Meneses APRN Primary Care Provider Unav ailable Sharath Garrido Unavailable [phone] Allergies No Known Allergies Results Component Value Reference Range Notes Urinalysis, Routine Reviewed date:04/03/2025 02:43:18 PM Interpretation: Performing Lab: Notes/Report: Urine-Color rod Appearance cloudy Glucose - Bilirubin 1+ Ketones - Specific [place] 1.030 Occult Blood trace pH 6.0 Urine Protein trace Urobilinogen,Semi-Qn - Nitrite, Urine - WBC Esterase - REASON FOR VISIT Microscopic Hematuria Medications Medication SIG (Take, Route, Fr equency, Duration) Notes Start Date End Date Status Ibuprofen 800 MG 1 tablet with food o r milk as needed Orally every 8 hrs Active Social History Tobacco Use: Social History Observation Description Date Details (start date - stop date) Never Smoker NA - NA Tobacco Control (Standard) Question Answer Notes Tobacco use: Nonsmoker Additional Findings: Tobacco user Chews tobacco AUDIT-C (Standard) Question Answer Notes Did you have a drink contain ing alcohol in the past year? Yes How often did you have a dri nk containing alcohol in the past year? Daily or almost daily (4 points) How many drinks did you have on a typical day when you were drinking in the past year? 1 or 2 drinks (0 point) How often did you have six o r more drinks on one occasion in the past year? Never (0 point) Points 4 Interpretation Positive Vital Signs Blood pressure systolic 137 mm Hg 04/03/20 25 Blood pressure diastolic 94 mm Hg 025 Heart Rate 79 /min 04/03/2025 Height 71 in 04/03/2025 Weight 225 lbs 04/03/2025 BMI 31.38 kg/m2 04/03/2025 Height-cm 180.34 cm 04/03/2025 Weight-kg 102.06 kg 04/03/2025 Encounters Encounter Location Date Provider Diagnosis [facility], [facility] [address] [place] [address] 04/03/2025 Sharath Garrido Establishing care wi new doctor, encounter for Z76.89 ; Microscopic hematuria R31.29 and Prostate cancer screening Z12.5 Assessments Encounter Date Diagnosis (ICD Code) Assessment Notes Treatment Notes Treatment Clinical Notes Section Notes 04/03/2025 Establishing care with new doctor, encounter for (ICD-10 - Z76.89) Given UA today, symptoms, and concerns, we discussed in consultation the indications and rationale for a hematuria workup including the possibility of the hematuria resulting from a malignancy or other acute process. In terms of the workup specifically, we discussed the need for evaluation of the upper urinary tracts with imaging and the lower urinary tract with cystoscopy. Since he is self pay and with recent negative BROCK, asking to hold off on CT at this time until insurance. At next return we will do a scheduled cystoscopy. Patient will need an updated PSA. For now, no further recommendations, and will await results of cystoscopy and PSA results. Patient satisfied with plan. All questions that were asked, were answered. 04/03/2025 Microscopic hematuria (ICD-10 - R31.29) Given UA today, symptoms, and concerns, we discussed in consultation the indications and rationale for a hematuria workup including the possibility of the hematuria resulting from a malignancy or other acute process. In terms of the workup specifically, we discussed the need for evaluation of the upper urinary tracts with imaging and the lower urinary tract with cystoscopy. Since he is self pay and with recent negative BROCK, asking to hold off on CT at this time until insurance. At next return we will do a scheduled cystoscopy. Patient will need an updated PSA. For now, no further recommendations, and will await results of cystoscopy and PSA results. Patient satisfied with plan. All questions that were asked, were answered. 04/03/2025 Prostate cancer screening (ICD-10 - Z12.5) Given UA today, symptoms, and concerns, we discussed in consultation the indications and rationale for a hematuria workup including the possibility of the hematuria resulting from a malignancy or other acute process. In terms of the workup specifically, we discussed the need for evaluation of the upper urinary tracts with imaging and the lower urinary tract with cystoscopy. Since he is self pay and with recent negative BROCK, asking to hold off on CT at this time until insurance. At next return we will do a scheduled cystoscopy. Patient will need an updated PSA. For now, no further recommendations, and will await results of cystoscopy and PSA results. Patient satisfied with plan. All questions that were asked, were answered. Plan Of Treatment Pending Test Test Name Order Date PSA-Diagnostic 04/03/2025 Next Appt Details Follow Up: cysto w/ psa, [place] son: Provider Name:BIANCA Arora, 07/01/2025 10:00:00 AM, [address] [place], [address], Progress Notes * Jani HAYDEN ADOB: [birth year] (49 yo M)Acc No.[id number]:04/03/2025 Progress Notes Patient: Jani MORILLO A Provider: Kristin Garrido APRN :1975 A ge:49 Y S ex:Male Date:04/03/2025 Address:[address] [place], [place] [id number] Pcp:Harjit Meneses APRN Subjective: * Chief Complaints: * 1 . Microscopic Hematuria. * HPI: M igrated HPI: 49 year old male, former smoker and former IV drug user, referred here today due to micro hematuria. Previously seen in the ER for URI and UA at this time confirmed 2+ blood. UA at PCP following ER visit shown 2+ blood as well. BROCK was ordered and instructed to hold NSAIDS. BROCK was completed on 02/22/25 that was negative. He additionally has hep B core antibody + and hep C antibody +. Cr of 0.9 on 02/26/25. He is unsure if PSA has ever been ordered. Here today to establish care and discuss next steps in plan of care. Denies issues able to urinate.? I PSS of 6 with nocturia x 2. Patient has no c/o flank pains. Denies abnormal weight loss. Denies pelvis pains. No scrotal/testicle concerns. N o history of nephrolithiasis. Patient reports no personal/family previous urological history. Patient does have other comorbidities. Todays UA with trace hematuria. PVR of 0cc. Patient is self pay. * ROS: G eneral / Constitutional: Patient denies chills, fever, change in appetite. A&O Gastrointestinal: Patient denies abdominal pain, nausea, vomiting, diarrhea. Genitourinary: Comments See HPI for details. * Medical History: M edical History Verified. * Surgical History: h ernia repair . * Hospitalization/Major Diagno stic Procedure: i nfection in right leg . * Family History: P babatunde Grandfather: , prostate and lung cancer. * Social History: T obacco Use: T obacco Control (Standard) T obacco use: N Tejal gerardo dditional Findings: Tobacco user C hews tobacco. D rug/Alcohol: D rugs H ave you used drugs other than those for medical reasons in the past 12 months?? former meth user , has been clean for 3 years. D o you drink alcohol?: Yes. AUDIT-C (Standard) D id you have a drink containing alcohol in the past year? Y es, H ow often did you have a drink containing alcohol in the past year? D aily or almost daily (4 points), H ow many drinks did you have on a typical day when you were drinking in the past year? 1 or 2 drinks (0 point), H ow often did you have six or more drinks on one occasion in the past year? N ever (0 point), P oints 4 , I nterpretation P ositive. * Medications: T aking Ibuprofen 800 MG Tablet 1 tablet with food or milk as needed Orally every 8 hrs , Medication List reviewed and reconciled with the patient * Allergies: N .K.D.A. Objective: * Vitals: B P:137/94mm Hg, HR:79/min, Wt:225lbs, Wt-k.06 kg, Ht: 71 in, Ht-cm: 180.34 cm, BMI:31.38Index, Body Surface Area: 2.26. * Examination: G eneral Examination: General appearance: a lert, well-nourished and in no acute distress. Skin: s kin is warm and dry, with no rashes, good skin turgor for age. Heart: N AD. Lungs: n on labored respirations. Abdomen: s oft, non tender, non distended. Back: n o CVA tenderness. Male genitourinary: D eferred Exam. Assessment: * Assessment: 1. M icroscopic hematuria - R31.29 (Primary) 2 . E stablishing care with new doctor, encounter for - Z76.89 3 . P rostate cancer screening - Z12.5 ? Given UA today, symptoms, an d concerns, we discussed in consultation the indications and rationale for a hematuria workup including the possibility of the hematuria resulting from a malignancy or other acute process. In terms of the workup specifically, we discussed the need for evaluation of the upper urinary tracts with imaging and the lower urinary tract with cystoscopy. Since he is self pay and with recent negative BROCK, asking to hold off on CT at this time until insurance. At next return we will do a scheduled cystoscopy. P atient will need an updated PSA. For now, no further recommendations, and will await results of cystoscopy and PSA results. Patient satisfied with plan. All questions that were asked, were answered. Plan: * Treatment: Value Reference Range U rine-Color rod * A ppearance cloudy * G lucose - * B ilirubin 1+ * K etones - * S pecific [place] 1.030 * O ccult Blood trace * p H 6.0 * U rine Protein trace * U robilinogen,Semi-Qn - * N itrite, Urine - * W BC Esterase - 2.?Prostate cancer screening?LAB: PSA-Diagnostic * Procedure Codes: 8 1003 URINALYSIS, AUTO, W/O SCOPE * Follow Up: c ysto w/ psa * Billing Information: * Visit Code: 51622 Office Visit, New Pt., Level 3. * Procedure Codes: 33357 URINALYSIS, AUTO, W/O SCOPE. * Electronic signature of Kenneth Garrido APRN on 04/04/2025 at 05:13 PM CDT Sign off status: Pending * Provider: Kristin Garrido, CORONER FORENSIC TECHNICIAN Date: 1 Generated for Adarshi ng/Precious/eTsrinismitting on: 05:13 PM CDT History and Physical Notes * HPI (History of Present Illness) Category Sub-Category Detail Notes Category Not es Migrated HPI 49 year old male, former smoker and former IV drug user, referred here today due to micro hematuria. Previously seen in the ER for URI and UA at this time confirmed 2+ blood. UA at PCP following ER visit shown 2+ blood as well. BROCK was ordered and instructed to hold NSAIDS. BROCK was completed on 02/22/25 that was negative. He additionally has hep B core antibody + and hep C antibody +. Cr of 0.9 on 02/26/25. He is unsure if PSA has ever been ordered. Here today to establish care and discuss next steps in plan of care. Denies issues able to urinate. IPSS of 6 with nocturia x 2. Patient has no c/o flank pains. Denies abnormal weight loss. Denies pelvis pains. No scrotal/testicle concerns. No history of nephrolithiasis. Patient reports no personal/family previous urological history. Patient does have other comorbidities. Todays UA with trace hematuria. PVR of 0cc. Patient is self pay Examination Category Sub-Category Detail Notes Category Not es General Examination General appearance: alert, w ell-nourished and in no acute distress Heart: NAD Lungs: non labored respirat ions Abdomen: soft, non tender, no n distended Skin: skin is warm and dry , with no rashes, good skin turgor for age Back: no CVA tenderness Male genitourinary: Deferred Exam
[2025-04-04 16:49] VITALS: BP 142/89; PULSE 123; RESP 22; TEMP 38.3; O2SAT 98
--- OUTSIDE RECORDS SUMMARY | 2025-04-04 17:14 | XMS_ITS | Patient Health Record ---
Author Organization [facility] Address [address] [place] [address] Care Team Providers Care Gut Snatcher Name Role Phone Harjit Meneses APRN Primary Care Provider Unav ailSharath Zuniga Unavailable [phone] Allergies No Known Allergies Results Component Value Reference Range Notes Urinalysis, Routine Reviewed date:04/03/2025 02:43:18 PM Interpretation: Performing Lab: Notes/Report: Urine-Color rod Appearance cloudy Glucose - Bilirubin 1+ Ketones - Specific [place] 1.030 Occult Blood trace pH 6.0 Urine Protein trace Urobilinogen,Semi-Qn - Nitrite, Urine - WBC Esterase - Reason For Referral No Information Medications Medication SIG (Take, Route, Fr equency, [...] point) Points 4 Interpretation Positive Vital Signs Heart Rate 79 /min 04/03/2025 Height-cm 180.34 cm 04/03/2025 Blood pressure diastolic 94 mm Hg 04/03/2025 Weight-kg 102.06 kg 04/03/2025 Height 71 in 04/03/2025 Blood pressure systolic 137 mm Hg 04/03/2025 Weight 225 lbs 04/03/2025 BMI 31.38 kg/m2 04/03/2025 Encounters Encounter Location Date Provider Diagnosis [facility] [address] [place] [address] 04/03/2025 Sharath Garrido Establishing care wi new doctor, encounter for Z76.89 ; Microscopic hematuria R31.29 and Prostate cancer screening Z12.5 [facility] [address] [place] [address] 02/27/2025 Sharath Garrido Assessments Encounter Date Diagnosis (ICD Code) Assessment [...] Order Date PSA-Diagnostic 04/03/2025 Next Appt Details Provider Name:BIANCA Arora, 07/01/2025 10:00:00 AM, [address] [place], [address], Medical (General) History Surgical History Surgery Date(Month/Year) hernia repair Hospitalization History Reason Date(Month/Year) infection in right leg
[2025-04-04 18:30] VITALS: BP 127/80; PULSE 107; RESP 16; O2SAT 99
[2025-04-04 19:00] VITALS: BP 151/81; PULSE 112; RESP 16; O2SAT 95
[2025-04-04 19:02] LABS: Hematocrit 41.2 % (37-53); Hemoglobin 14.30 g/dL (11.27-16.99); Mean Corpuscular HGB Conc 34.7 g/dL (30-55); Mean Corpuscular Hemoglobin 30.0 pg (27-33); Mean Corpuscular Volume 86.4 fl (82-101); Nucleated Red Blood Cells % 0 %; Platelet Count 211 10^3/cmm (157-399); Red Blood Count 4.77 10^6/uL (3.85-5.65); White Blood Count 10.24 10^3/uL (3.29-11.43)
--- NOTE | 2025-04-04 19:03 | USR_ITS ---
PROCEDURE INFORMATION: Exam: US Left Limited Joint or Other Non-Vascular Extremity Structure Exam date and time: 04/04/2025 7:49 PM Age: 49 years old Clinical indication: Pain; Thigh; Left; Additional info: Left groin swelling TECHNIQUE: Imaging protocol: US left limited joint or other nonvascular extremity structure. Real-time ultrasound with image documentation. Exam focused on the area of clinical interest. COMPARISON: US renal BI* [id number] 02/23/2025 12:57 PM FINDINGS: Soft tissues: Unremarkable. No loculated collections. Other findings: Left inguinal enlarged hypervascular lymph node measuring 10 mm short axis, nonspecific, may reflect underlying infection. Please correlate clinically. US/US soft tissue/extremity [id number] IMPRESSION: Left inguinal enlarged hypervascular lymph node measuring 10 mm short axis, nonspecific, may reflect underlying infection. Please correlate clinically.
[2025-04-04 19:39] LABS: Alanine Aminotransferase 47 U/L (0-41); Albumin Level 4.5 g/dL (3.5-5.2); Alkaline Phosphatase 59 U/L (40-130); Anion Gap 18.5 (5-19); Aspartate Amino Transferase 28 U/L (0-40); Blood Urea Nitrogen 17 mg/dL (6-20); Calcium 9.1 mg/dL (8.5-10.5); Carbon Dioxide 23 mmol/L (22-29); Chloride 99 mmol/L (98-107); Creatinine Clr Calc Pharmacy 103.5736; Globulin 3.5 g/dL (1.3-4.6); Glucose 141 mg/dL (65-115); Osmolality Calculated 288 mOsm/kg (285-295); Potassium 3.5 mmol/L (3.5-5.1); Sodium 137 mmol/L (136-145); Total Protein 8.0 g/dL (6.6-8.7)
[2025-04-04 19:40] LABS: Lactic Sepsis W/Reflex 1.2 mmol/L (0.5-2.2)
[2025-04-04 19:53] LABS: Glucose Urine UA Negative (Normal); Nitrate Urine Negative (Negative); Specific Gravity, Urine 1.027 (1.005-1.030)
[2025-04-04 19:58] LABS: Add Urine Microscopic? YES
[2025-04-04 20:12] LABS: Respiratory Syncytial Virus Ce NEGATIVE (Negative); SARS-CoV-2 PCR NEGATIVE (Negative)
[2025-04-04 21:02] VITALS: BP 131/67; PULSE 106; RESP 16; O2SAT 92
--- NOTE | 2025-04-04 21:33 | ED_ITS ---
HPI - General Adult 2 General: Chief complaint: General Medical Stated complaint: L Upper leg swelling Time Seen by Provider: 04/04/25 17:59 Source: patient Mode of arrival: ambulatory Limitations: no limitations History of Present Illness: Patient is a 49-year-old male who presents the emergency department complaining of left groin pain onset today. Patient recently was in the hospital for IV antibiotics after he was diagnosed with acute lymphangitis of the right lower extremity as well as cellulitis, he was discharged after he showed major improvement and states he has been okay since then. States today after he took a drink of water he started having the pain in his left groin, nonradiating he states he is just here to make sure he is not having recurrence. He also arrives minimally tachycardic with febrile temperature 100.9. States that he has been working outside in the heat. No fever, nausea/vomiting, chills, abdominal pain, or other symptoms noted at this time. MD complaint: Left groin pain Onset (ago): hour(s) Associated symptoms: Deny chest pain, dyspnea, headache(s), nausea, rash, palpitations or vomiting Related Data Previous Rx's ?Medication ?Instructions ?Recorded ibuprofen 200 mg tablet (Advil) 800 mg (4 x 200 mg) PO 3XD PRN 02/26/25 Fever Or Pain #30 tabs doxycycline hyclate 100 mg tablet 100 mg PO BID leg in fection #20 03/09/25 tabs amoxicillin 875 mg-potassium 1 tab PO BID 10 days #20 tabs 04/04/25 clavulanate 125 mg tablet Allergies Allergy/AdvReac Type Severity Reaction Status Date / Time No Known Allergies Allergy Verified 03/11/25 10:07 Review of Systems 2 General: Reports: 10 or more systems reviewed and unremarkable except in HPI and below Const: Denies: fever(s), chills or fatigue Eyes: Denies: change in vision ENMT: Denies: throat pain, ear or mastoid pain or nasal discharge Card: Denies: chest pain, palpitations, swelling of feet/ankles or lightheadedness Resp: Denies: dyspnea, productive cough or wheezing GI: Denies: abdominal pain, nausea, vomiting, diarrhea or constipation : Reports: other (Left groin pain); Denies: flank pain, difficulty urinating, dysuria or urinary frequency Musc: Denies: neck pain, back pain or joint pain Skin/Breast: Denies: rash Neuro: Denies: headache(s), numbness in extremities or weakness in extremities PFSH ED 2 PFSH: Medical History Nicotine dependence due to vaping non-tobacco product Hepatitis C antibody positive Surgical History Hx of hernia repair Social History Smoking and tobacco/nicotine status: never used tobacco/nicotine Second hand smoke exposure: No Alcohol intake: former Substance/Drug Use: former Adopted: No Caregiver/support person: No Lives independently: No Household members: none Housing: House Marital status: Single Number of children: 5 Highest education level completed: High School Graduate service: No Physical Exam 2 Const: COMMON NORMALS: no acute distress and no limitations GENERAL APPEARANCE: cooperative, comfortable and well developed O RIENTATION/CONSCIOUSNESS: Yes awake OTHER: nontoxic HENMT: COMMON NORMALS: normocephalic, atraumatic and hearing grossly normal bilaterally HEAD & SCALP: normocephalic and atraumatic Eye: COMMON NORMALS: Equal, round and reactive pupils present, EOMs intact bilaterally and conjunctivae normal CONJUNCTIVA: Yes conjunctivae normal P UPIL: Yes Equal, round and reactive pupils present Neck/C-Spine: COMMON NORMALS: full ROM, supple and no JVD Resp: COMMON NORMALS: normal respiratory effort, No retractions, No use of accessory muscles and clear to auscultation bilaterally AUSCULTATION: clear to auscultation bilaterally Cardio: COMMON NORMALS: no JVD, regular rhythm, No clicks present (Cardio), No murmurs present (Cardio) and No rub (Cardio) RATE: tachycardic RHYTHM: r egular rhythm GI: COMMON NORMALS: Normal to inspection, nondistended, normoactive bowel sounds present, Soft to palpation and non-tender AUSCULTATION: Yes normoactive bowel sounds PALPATION: Yes Soft to palpation RECTAL EXAM: Yes deferred : OTHER: Palpable lymphadenopathy to left inguinal region Extremity: COMMON NORMALS: normal to inspection, full ROM and capillary refill normal OTHER: There is no redness to the left lower extremity, no red streaking. Distal neurovascular exam is intact. Skin: COMMON NORMALS: no rashes or lesions noted GENERAL SKIN EXAM: no rashes or lesions noted Course 2 Vital Signs: Vital signs: Vital Signs Temperature 100.9 F H 04/04/25 16:49 Pulse Rate 106 H 04/04/25 21:02 Respiratory Rate 16 04/04/25 21:02 Blood Pressure 131/67 04/04/25 21:02 Pulse Oximetry 92 04/04/25 21:02 Oxygen Delivery Me thod Room Air 04/04/25 21:02 MDM - General Adult Medical Decision Making Patient presented complaining of left groin pain, recently was hospitalized for IV antibiotics for right lower extremity lymphangitis and cellulitis. He had noted improvement after discharge, states that the pain in his left groin started today after drinking water and he was concerned he was having recurrence. On exam there is palpable swelling and tenderness to the left groin region, no overlying erythema. The left lower extremity exam was also unremarkable as there was no redness or red streaking. He is tachycardic however, and febrile on arrival 100.9. However he he was overall nontoxic- appearing had no complaints of fevers, chills, or nausea/vomiting. 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 COVID flu RSV swab was negative. His lab work was also reassuring, there was no leukocytosis, no elevation in ESR or CRP, and urinalysis was unremarkable. The soft tissue ultrasound shows lymphadenitis, we will treat with Augmentin p.o. outpatient and he is overall stable for discharge home and not requiring IV antibiotics at this time. He is informed to follow-up with his primary care provider for reevaluation next week and to return with any new or worsening. Lab Data 04/04/25 18:50 04/04/25 18:50 Radiology Impressions Soft Tissue Ultrasound 04/04/25 19:03 IMPRESSION: Left inguinal enlarged hypervascular lymph node measuring 10 mm short axis, nonspecific, may reflect underlying infection. Please correlate clinically. Laboratory Results WBC 10.24 10^3/uL (3.29-11.43) 04/04/25 18:50 RBC 4.77 10^6/uL (3.85-5.65) 04/04/25 18:50 Hgb 14.30 g/dL (11.27-16.99) 04/04/25 18:50 Hct 41.2 % (37-53) 04/04/25 18:50 MCV 86.4 fl (82-101) 04/04/25 18:50 MCH 30.0 pg (27-33) 04/04/25 18:50 MCHC 34.7 g/dL (30-55) 04/04/25 18:50 RDW 13.2 % (12.1-15.1) 04/04/25 18:50 Plt Count 211 10^3/cmm (157-399) 04/04/25 18:50 MPV 11.1 fL (7.4-10.4) H 04/04/25 18:50 Neut % (Auto) 85.5 % 04/04/25 18:50 Lymph % (Auto) 7.2 % 04/04/25 18:50 Orange % (Auto) 7.0 % 04/04/25 18:50 Eos % (Auto) 0.0 % 04/04/25 18:50 Baso % (Auto) 0.1 % 04/04/25 18:50 Neut # (Auto) 8.75 10^3/uL (1.8-7.7) H 04/04/25 18:50 Lymph # (Auto) 0.7 10^3/uL (0.8-4.8) L 04/04/25 18:50 Orange # (Auto) 0.7 10^3/uL (0.2-0.9) 04/04/25 18:50 Eos # (Auto) 0.0 10^3/uL (0.0-0.8) 04/04/25 18:50 Baso # (Auto) 0.0 10^3/uL (0.0-0.1) 04/04/25 18:50 Nucleated RBC % (auto) 0 % 04/04/25 18:50 Nucleated RBCs # 0.0 /100WBC 04/04/25 18:50 ESR < 1 mm/hr (0-10) 04/04/25 18:50 Sodium 137 mmol/L (136-145) 04/04/25 18:50 Potassium 3.5 mmol/L (3.5-5.1) 04/04/25 18:50 Chloride 99 mmol/L (98-107) 04/04/25 18:50 Carbon Dioxide 23 mmol/L (22-29) 04/04/25 18:50 Anion Gap 18.5 (5-19) 04/04/25 18:50 BUN 17 mg/dL (6-20) 04/04/25 18:50 Creatinine 1.1 mg/dL (0.7-1.2) 04/04/25 18:50 GFR Calculation 71.1 mL/min (90-130) L 04/04/25 18:50 Glucose 141 mg/dL (65-115) H 04/04/25 18:50 Calculated Osmolality 288 mOsm/kg (285-295) 04/04/25 18:50 Lactic Acid 1.2 mmol/L (0.5-2.2) 04/04/25 18:50 Calcium 9.1 mg/dL (8.5-10.5) 04/04/25 18:50 Total Bilirubin 0.8 mg/dL (0.15-1.2) 04/04/25 18:50 AST 28 U/L (0-40) 04/04/25 18:50 ALT 47 U/L (0-41) H 04/04/25 18:50 Alkaline Phosphatase 59 U/L (40-130) 04/04/25 18:50 C-Reactive Protein 10.0 mg/L (0.0-4.9) H 04/04/25 18:50 Total Protein 8.0 g/dL (6.6-8.7) 04/04/25 18:50 Albumin 4.5 g/dL (3.5-5.2) 04/04/25 18:50 Globulin 3.5 g/dL (1.3-4.6) 04/04/25 18:50 Urine Color Yellow (Yellow) 04/04/25 19:44 Urine Appearance Clear (CLEAR) 04/04/25:44 Urine pH 6.5 (5-7) 04/04/25:44 Ur Specific [place] 1.027 (1.005-1.030) 04/04/25:44 Urine Protein Trace (Negative) A 04/04/25:44 Urine Glucose (UA) Negative (Normal) 04/04/25:44 Urine Ketones Trace (Negative) 10/16/25 19:44 Urine Blood 1+ (Negative) A 04/04/25 19:44 Urine Nitrate Negative (Negative) 04/04/25 19:44 Urine Bilirubin Negative (Negative) 04/04/25 19:44 Urine Urobilinogen 1.0 mg/dL (Negative) 04/04/25 19:44 Ur Leukocyte Esterase Negative (Negative) 04/04/25 19:44 Urine RBC 11-20 /hpf (0-2) H 04/04/25 19:44 Urine WBC 0-5 /hpf (0-5) 04/04/25 19:44 Ur Squamous Epith Cells 0-5 /hpf (0-5) 04/04/25 19:44 Amorphous Sediment Not Reportable 04/04/25 19:44 Urine Bacteria None seen /hpf (NONE) 04/04/25 19:44 Hyaline Casts 0-4 /lpf H 04/04/25 19:44 Influenza A (PCR) Negative (Negative) 04/04/25 19:16 Influenza Type B (PCR) Negative (Negative) 04/04/25 19:16 RSV (PCR) Negative (Negative) 04/04/25 19:16 SARS-CoV-2 (PCR) Negative (Negative) 04/04/25 19:16 All radiology interpretation(s) finalized by discharge Discharge Plan Discharge Patient Disposition: Home Clinical Impression: Acute inguinal lymphadenitis Condition: Stable Prescriptions: New amoxicillin-pot clavulanate 875-125 mg tablet 1 tab PO BID 10 Days Qty: 20 0RF No Action doxycycline hyclate 100 mg tablet 100 mg PO BID Qty: 20 0RF ibuprofen [Advil] 200 mg Tablet 800 mg PO 3XD PRN (Reason: Fever Or Pain) Qty: 30 0RF Discharge Orders: Discharge ED (Routine); Ordered 04/04/25 Ordered By: Yair Ambrocio Referrals: Slime Chavez NP [Primary Care Provider, Family Practice] Patient Instructions: Patient Portal & Becky Instructions Activity Restrictions/Additional Instructions: Discharge Instructions: Lymphadenitis Diagnosis: You have been diagnosed with acute inguinal lymphadenitis, which means a lymph node in your groin is swollen and likely infected. Your lab results were normal, and you are well enough to go home. Medications: - Start taking amoxicillin-clavulanate (Augmentin) as prescribed, twice daily. - Take the medication with food to help prevent stomach upset. - Finish the entire course, even if you start to feel better before it is done. What to Expect: - Mild pain, swelling, or tenderness in the groin area is common. - You should start to feel better within a few days of starting antibiotics. When to Seek Medical Attention: Contact your healthcare provider or go to the emergency room if you experience: - Fever (temperature above 100.4?F/38?C) - Redness, warmth, or pus over the swollen area - Rapidly increasing pain or swelling - New skin changes, such as ulcers or open sores - Chills, night sweats, or unexplained weight loss - Any other symptoms that concern you Self-Care at Home: - Rest as needed. - Drink plenty of fluids. - You may use acetaminophen or ibuprofen for pain, unless told otherwise by your doctor. Follow-Up: - Schedule a follow-up appointment as directed, or sooner if your symptoms do not improve within 3?5 days. - If the swelling persists for more than 4 weeks or you develop new symptoms, further evaluation may be needed. Precautions: - Do not squeeze or try to drain the swollen area yourself. - Avoid strenuous activity until the swelling and pain have resolved. If you have any questions or concerns, please contact your healthcare provider. 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
[2025-04-04 21:37] VITALS: BP 131/67; PULSE 105; RESP 16; O2SAT 93
== END 2025-04-04 21:38 | disposition home or self-care (01) ==
PROVIDERS: Emergency Provider Physician Assistant
DX: L04.1 Acute lymphadenitis of trunk (principal); Z11.52 Encounter for screening for COVID-19
CPT/HCPCS: 36415; 76882; 80053; 81001; 83605; 85025; 85651; 86140; 87040; 87637; 96361; 96374; 99285; J1885; J7030

== ENCOUNTER → 2025-04-30 10:52 | Outpatient (BNVA) | payer SELFPAY | PROVIDERS: Visit Provider Student in an Organized Health Care Education/Training Program | DX: B19.20 Unspecified viral hepatitis C without hepatic coma (principal); R76.89 Other specified abnormal immunological findings in serum; Z11.3 Encounter for screening for infections with a predominantly sexual mode of transmission | CPT/HCPCS: 36415; 81596; 86160; 86592; 86668; 87491; 87591; 87806 ==

== ENCOUNTER 2025-05-10 13:50 | Outpatient (CLI) | payer SELFPAY ==
--- NOTE | 2025-05-10 13:45 | USR_ITS ---
PROCEDURE INFORMATION: Exam: US Duplex Lower Extremity Veins, Bilateral Exam date and time: 05/10/2025 2:04 PM Age: 49 years old Clinical indication: Screening exam; Evaluation for venous reflux; Additional info: Reflux study to assess venous reflux, venous reflux study, recurrent cellulitis, suspect venous TECHNIQUE: Imaging protocol: Real-time duplex ultrasound of the bilateral extremities with 2-D cooper scale, color Doppler flow and spectral waveform analysis including responses to compression and other maneuvers (when performed) with image documentation. Complete exam focused on the lower extremity veins. COMPARISON: US soft tissue/extremity [id number] 04/04/2025 7:49 PM FINDINGS: Right deep veins: Unremarkable. The common femoral, femoral and popliteal veins are patent without thrombus. Normal Doppler waveforms. Normal compressibility and/or augmentation response. Left deep veins: Unremarkable. The common femoral, femoral and popliteal veins are patent without thrombus. Normal Doppler waveforms. Normal compressibility and/or augmentation response. Superficial veins: Greater saphenous veins and small saphenous veins are free of thrombus and demonstrate no reflux Soft tissues: Unremarkable. US/CV anabela dup insuff [facility] [id number] IMPRESSION: No evidence of deep vein thrombosis. The greater saphenous and small saphenous veins are free of thrombus and demonstrate no reflux.
== END 2025-05-10 13:51 | disposition home or self-care (01) ==
LOC: RAD 13:52
PROVIDERS: Visit Provider Student in an Organized Health Care Education/Training Program
DX: L03.115 Cellulitis of right lower limb (principal); L03.116 Cellulitis of left lower limb
CPT/HCPCS: 93970